=== PATIENT | female | born 1970 | race Caucasian/White ===

== ENCOUNTER → 2020-03-23 10:57 | Outpatient (BNVA) | payer OTHER, SELFPAY | PROVIDERS: PCP Nurse Practitioner Family; Referring Provider Nurse Practitioner Family; Visit Provider Surgery | DX: Z01.818 Encounter for other preprocedural examination (principal) | CPT/HCPCS: 99203; 99213 ==

== ENCOUNTER → 2020-04-06 07:50 | Outpatient (BNV) | payer OTHER, SELFPAY | PROVIDERS: PCP Nurse Practitioner Family; Referring Provider Surgery; Visit Provider Internal Medicine Medical Oncology | DX: C50.911 Malignant neoplasm of unspecified site of right female breast (principal); M85.80 Other specified disorders of bone density and structure, unspecified site | CPT/HCPCS: 99204; 99213; 99214 ==

== ENCOUNTER 2020-04-07 10:30 | Outpatient (REF) | payer OTHER, SELFPAY ==
--- NOTE | 2020-04-07 10:38 | MM_ITS ---
EXAMINATION: BONE DENSITOMETRY CLINICAL INDICATION: Other specified disorders bone density and structure, unspecified site. COMPARISON: None (current study represents initial baseline exam). TECHNIQUE: Using a [employer] DXA System (software version: 13.1) manufactured by [employer], dual-energy x-ray absorptiometry was performed of the lumbar spine and left hip. The images are of good technical quality. Summary results are attached. FINDINGS: AP SPINE L1-L4: BMD 0.986 g/cm2, Z-score -1.2, T-score -1.6, osteopenia. LEFT FEMUR, NECK: BMD 0.965 g/cm2, Z-score 0.3, T-score -0.5, normal. LEFT FEMUR, TOTAL: BMD 1.021 g/cm2, Z-score 0.6, T-score 0.1, normal. IDENTIFIED RISK FACTORS: Low calcium intake. HISTORY OF FRACTURE: None listed. MEDICATIONS: Calcium supplement and/or multivitamin. Vitamin D. IMPRESSION: 1. DIAGNOSIS: Osteopenia based on the lowest T-score value of -1.6 in the lumbar spine applying World Health Organization criteria. 2. 10-YEAR FRACTURE RISK PREDICTION, FRAX: Major osteoporotic fracture (clinical spine, forearm, hip or shoulder) 2.1%. Hip fracture 0.1%. 3. Treatment Recommendations: NOF guidelines recommend consideration for treatment in postmenopausal women and men age 50 and older presenting with the following: -A hip or vertebral (clinical or morphometric) fracture. -T-score less than or equal to -2.5 at the femoral neck or spine after appropriate evaluation to exclude secondary causes. -Low bone mass at the hip or spine and a 10-year fracture probability by FRAX of greater than or equal to 3% for hip fracture or greater than or equal to 20% for major osteoporotic fracture based on the [place] adapted WHO algorithm. 4. Other Recommendations: All treatment decisions require clinical judgment and consideration of individual patient factors, including patient preferences, comorbidities, previous drug use, risk factors not captured in the FRAX model (e.g. frailty, falls, vitamin D deficiency, increased bone turnover, interval significant decline in bone density) and possible under or overestimation of fracture risk by FRAX. Additional medical evaluation for secondary cause of low bone mineral density may be appropriate. FUTURE SCAN RECOMMENDATION: People with diagnosed cases of osteoporosis or at high risk for fracture should have regular bone mineral density tests. For patients eligible for Medicare, routine testing is allowed once every 2 years. The testing frequency can be increased to one year for patients who have rapidly progressing disease, those who are receiving or discontinuing medical therapy to restore bone mass, or have additional risk factors.
--- NOTE | 2020-04-13 11:31 | MHC.HEMONCSW ---
FAXED INFO. TO [facility]. THEY WILL CALL AND SCHEDULE PT.
== END 2020-04-07 10:31 | disposition home or self-care (01) ==
LOC: HO.MAMMO 10:30
PROVIDERS: Visit Provider Internal Medicine Medical Oncology
DX: Z13.820 Encounter for screening for osteoporosis (principal); M85.80 Other specified disorders of bone density and structure, unspecified site; Z79.899 Other long term (current) drug therapy
CPT/HCPCS: 77081

== ENCOUNTER → 2020-04-28 09:23 | Outpatient (BNVA) | payer OTHER, SELFPAY | PROVIDERS: PCP Nurse Practitioner Family; Visit Provider Surgery | DX: C50.911 Malignant neoplasm of unspecified site of right female breast (principal); Z79.810 Long term (current) use of selective estrogen receptor modulators (SERMs) | CPT/HCPCS: 99212 ==

== ENCOUNTER 2020-05-02 06:29 | Day surgery (SDC) | payer OTHER, SELFPAY ==
[2020-04-26 19:07] VITALS: BMI 25.0
--- NOTE | 2020-05-01 10:59 | HO.ANESPROP2 ---
Documented by User: Spring Riddle 05/01/20 11:01 HPI - Anesthesia Eval Consult details Narrative: 49yo F for Colonoscopy PMFSH Past Medical History Medical History Anxiety Back pain Chronic insomnia Depression Dyspepsia Elevated cholesterol GERD (gastroesophageal reflux disease) Hypertension Invasive lobular carcinoma of right breast, stage 1 Nephrolithiasis Scoliosis Family History Family History Mother History of diabetes mellitus History of fibromyalgia Father No problems noted. Paternal Grandmother History of cancer Surgical History Surgical History History of extraction of renal calculus History of lumpectomy of right breast (~03/16/20) Social History Social History Household Members: Family Alcohol intake: current Alcohol intake frequency: holidays/special occasions only Smoking Status: Former smoker Years Smoked: 15 Smoked in Last 30 Days: No Smoking Quit Date: 2016 Use of substances other than those prescribed or required for medical reasons: No Advance Directives: No Advance Directives Information Provided: No Advance Directives on File: No Recently lost weight without trying: No Meds Allergies Allergy/AdvReac Type Severity Reaction Status Date / Time ibuprofen [From MOTRIN] AdvReac Unknown BRUISING Verified 05/02/20 06:44 Vicks Vaporub Allergy Unknown rash Uncoded 05/02/20 06:44 Home Medications Medication Instructions Recorded Confirmed Type atorvastatin 20 mg tablet 20 mg PO DAILY 03/18/20 04/26/20 History losartan 50 mg tablet 50 mg PO DAILY 03/18/20 04/26/20 History ondansetron HCl 4 mg tablet 4 mg PO Q8H PRN 03/23/20 04/26/20 History fluoxetine 40 mg capsule 40 mg PO DAILY 04/28/20 History Exam Exam Date and Time: May 01, 2020 1059 Height,Weight and Vital Signs: Height 5 ft 2 in Weight 62.142 kg Pertinent Lab Results Pertinent Lab Results: Laboratory Tests 04/20/20 04/20/20 10:28 10:28 WBC 6.9 Hgb 12.2 Hct 37.4 Plt Count 191 Sodium 137 Potassium 4.2 Chloride 102 Carbon Dioxide 28 BUN 11 Creatinine 0.55 Assessment and Plan Assessment Anesthesia Assessment: Chart Reviewed Documented by User: Larissa Beckwith 05/02/20 07:08 [facility] Past Medical History Medical History Anxiety Back pain Chronic insomnia Depression Dyspepsia Elevated cholesterol GERD (gastroesophageal reflux disease) Hypertension Invasive lobular carcinoma of right breast, stage 1 Nephrolithiasis Scoliosis Family History Family History Mother History of diabetes mellitus History of fibromyalgia Father No problems noted. Paternal Grandmother History of cancer Surgical History Surgical History History of extraction of renal calculus History of lumpectomy of right breast (~03/16/20) Social History Social History Household Members: Family Alcohol intake: current Alcohol intake frequency: holidays/special occasions only Smoking Status: Former smoker Years Smoked: 15 Smoked in Last 30 Days: No Smoking Quit Date: 2016 Use of substances other than those prescribed or required for medical reasons: No Advance Directives: No Advance Directives Information Provided: No Advance Directives on File: No Recently lost weight without trying: No Meds Allergies Allergy/AdvReac Type Severity Reaction Status Date / Time ibuprofen [From MOTRIN] AdvReac Unknown BRUISING Verified 05/02/20 06:44 Vicks Vaporub Allergy Unknown rash Uncoded 05/02/20 06:44 Home Medications Medication Instructions Recorded Confirmed Type atorvastatin 20 mg tablet 20 mg PO DAILY 03/18/20 04/26/20 History losartan 50 mg tablet 50 mg PO DAILY 03/18/20 04/26/20 History ondansetron HCl 4 mg tablet 4 mg PO Q8H PRN 03/23/20 04/26/20 History fluoxetine 40 mg capsule 40 mg PO DAILY 04/28/20 History Exam Airway Mallampati Class: II TM Dist: >3cm Neck ROM: Full Assessment and Plan Assessment Anesthesia Assessment: Anesthesia Plan Discussed and Chart Reviewed Final Anesthetic Review NPO: Yes ASA Class: II Final Preanesthetic Review: No Changes in Pt Med Stat, Meds/Allgs Chart Reviewed, Consent Obtained/Reviewed and Anes Risks/Benef Reviewed Patient Risk: Intermediate Procedure Risk: Low Assessment/Block/Sedation in SS: Assess/Block/Sedation-SS Anesthetic Plan Anesthetic Plan: MAC: Disposition: Standard PACU
[2020-05-02 06:46] VITALS: BP 139/76; PULSE 83; RESP 16; TEMP 36.7; O2SAT 98
[2020-05-02] MEDS: Lactated Ringers 1,000 ML 100 ML IVCONT (06:59)
--- NOTE | 2020-05-02 07:20 | P.HPSUR_ITS ---
Pre-Procedural Eval Section A The patient is an INPATIENT: No Section B Chief Complaint: Colon Cancer Screening Details of Present Illness: for screening colonoscopy, no GI complaints Relevant Family History (Specify if Yes): No Relevant Social History: None Present Medications: see Short Stay Collaborative assessment Medical History: No relevant PMH Allergies: Allergies Allergy/AdvReac Type Severity Reaction Status Date / Time ibuprofen [From MOTRIN] AdvReac Unknown BRUISING Verified 05/02/20 06:44 Vicks Vaporub Allergy Unknown rash Uncoded 05/02/20 06:44 Review of Systems Sugical H&P ROS: Negative: Constitution, Cardiovascular, Respiratory, Neurological, Psychiatric, Hem-Onc, Allergic/Immunologic, Gastrointestinal, Genitourinary, Musculoskeletal, Integumentary, Endocrine and Eyes/Ears/Nose/Throat Exam Surgical H&P Exam: Normal: HEENT, Normal: Heart, Normal: Lungs, Normal: Ex tremities, Normal: Abdomen, Normal: Skin and Normal: Neurological Plan Diagnosis/Plan: Unchanged Patient has been examined and remains a candidate for the planned procedure
--- NOTE | 2020-05-02 08:14 | PM.OP ---
Brief Operative Note Date of procedure: 05/02/20 Pre-op diagnosis: colon ca screen Post-op diagnosis: other (colonoscopy to the right colon only - unable to advance due to looping) Procedure: colonoscopy to right colon Surgeon: Clarence Harris MD Anesthesia: MAC Estimated blood loss (mL): 0 Pathology: none sent Condition: stable Disposition: PACU
[2020-05-02 08:15] VITALS: BP 102/59; PULSE 77; RESP 16; TEMP 36.4; O2SAT 97
[2020-05-02 08:25] VITALS: BP 121/73; PULSE 73; RESP 18; TEMP 36.3; O2SAT 98
--- NOTE | 2020-05-02 08:41 | HO.POSTANES ---
Post Anesthesia Evaluation Post Anesthesia Evaluation Vital Signs: Vital Signs Temp Pulse Resp BP Pulse Ox 05/02/20 08:25 97.4 F 73 18 121/73 98 05/02/20 08:15 97.6 F 77 16 102/59 L 97 05/02/20 06:46 98.1 F 83 16 139/76 98 Anesthesia: Monitored (tiva) Mental Status: Awake Pain Control: Satisfactory Nausea/Vomiting: None Hydration: Adequate Anesthesia-Related Issues: No Anes. Related Issues
--- NOTE | 2020-05-02 09:18 | OP_ITS ---
SURGEON: Clarence Harris MD INDICATIONS: The patient is a 49-year-old female referred for screening colonoscopy. She understood the technique of procedure. She was aware of the risks, benefits, and alternatives. PREOPERATIVE DIAGNOSIS: Colon cancer screening. POSTOPERATIVE DIAGNOSIS: Colonoscopy of the right colon, otherwise no lesions, otherwise normal. PROCEDURE PERFORMED: Colonoscopy to the right colon, unable to advance to the distal right colon and cecum. ESTIMATED BLOOD LOSS: COMPLICATIONS: ANESTHESIA: ASSISTANTS: SPECIMENS: DESCRIPTION OF PROCEDURE: She was brought to the operating room, placed in left lateral decubitus position under monitored anesthesia care. A full digital rectal exam was done. There were no palpable anal canal lesions. The tip of the Olympus colonoscope was introduced gently through the anal orifice and advanced with insufflation all the way past the hepatic flexure on the right side. The patient had significant looping however during the entire procedure. After we had gotten past the hepatic flexure, I was unable to advance the scope further despite multiple maneuvers including turning the patient supine. We had applied splinting on the abdomen in different quadrants but we were unsuccessful and unable to advance the scope further than the distal right colon. After multiple attempts, we decided to continue to keep withdrawing the scope. We examined rest of the colonic mucosa from the distal right colon, transverse colon, left colon all the way to the rectum. The patient had good bowel prep, so it was unlikely that any lesion may have been missed. The rectum was reached and there were no lesions seen. The anal canal was unremarkable. The scope was gently withdrawn completely with de-sufflation. The patient tolerated the procedure well. There were no complications noted. In view of this, as we were unable to see the proximal right colon and cecum, I would recommend another colonoscopy within the next 5 years. Furthermore, I would recommend doing stool testing every year as part of her screening. MD SHA Welch/[employer] / [id number]
== END 2020-05-02 08:43 | disposition home or self-care (01) ==
PROVIDERS: PCP Nurse Practitioner Family; Visit Provider Surgery
PROC: 0DJD8ZZ Inspection of Lower Intestinal Tract, Via Natural or Artificial Opening Endoscopic (ICD-10-PCS; CPT 45378; principal; 2020-05-02 07:30)
DX: Z12.11 Encounter for screening for malignant neoplasm of colon (principal); K56.2 Volvulus; K21.9 Gastro-esophageal reflux disease without esophagitis; F32.9 Major depressive disorder, single episode, unspecified; I10 Essential (primary) hypertension; C50.911 Malignant neoplasm of unspecified site of right female breast; Z79.810 Long term (current) use of selective estrogen receptor modulators (SERMs); Z79.899 Other long term (current) drug therapy; Z88.8 Allergy status to other drugs, medicaments and biological substances; Z87.891 Personal history of nicotine dependence
CPT/HCPCS: 45378; J2405; J3010

== ENCOUNTER → 2020-05-15 09:42 | Outpatient (BNVA) | payer OTHER, SELFPAY | PROVIDERS: PCP Nurse Practitioner Family; Visit Provider Surgery | DX: Z01.818 Encounter for other preprocedural examination (principal) | CPT/HCPCS: 99212 ==

== ENCOUNTER → 2020-07-28 09:01 | Outpatient (BNVA) | payer OTHER, SELFPAY | PROVIDERS: PCP Nurse Practitioner Family; Visit Provider Surgery | DX: C50.911 Malignant neoplasm of unspecified site of right female breast (principal); Z79.810 Long term (current) use of selective estrogen receptor modulators (SERMs); Z17.0 Estrogen receptor positive status [ER+]; Z92.3 Personal history of irradiation | CPT/HCPCS: 99212 ==

== ENCOUNTER → 2020-10-24 09:30 | Outpatient (BNVA) | payer OTHER, SELFPAY | PROVIDERS: PCP Nurse Practitioner Family; Referring Provider Nurse Practitioner Family; Visit Provider Surgery | DX: Z85.3 Personal history of malignant neoplasm of breast (principal) | CPT/HCPCS: 99212 ==

== ENCOUNTER 2020-11-16 | Outpatient (REF) | payer OTHER, SELFPAY | END 2020-11-16 00:01 | disposition home or self-care (01) | LOC: HO.LNP | PROVIDERS: Visit Provider Hospitalist | DX: R10.9 Unspecified abdominal pain (principal) | CPT/HCPCS: 87086 ==

== ENCOUNTER 2020-11-17 11:39 | Outpatient (REF) | payer OTHER, SELFPAY | END 2020-11-17 11:40 | disposition home or self-care (01) | LOC: HO.LNP 11:39 | PROVIDERS: Visit Provider Hospitalist | DX: Z13.89 Encounter for screening for other disorder (principal) ==

== ENCOUNTER 2020-11-22 12:51 | Outpatient (REF) | payer OTHER, SELFPAY ==
--- NOTE | ~2020-11-22 | US_ITS ---
EXAMINATION: US RETROPERITONEAL LIMITED (RENAL ONLY) CLINICAL INFORMATION: Abdominal pain. History of kidney stones.. COMPARISON: None TECHNIQUE: Routine grayscale imaging of both kidneys is performed. FINDINGS: RIGHT KIDNEY: 10.8 x 5.9 x 5.7 cm (SAG x AP x TRV). The kidney is normal in size, contour, and echogenicity. Renal cortical thickness is normal. There is an echogenic stone upper pole measuring 0.42 x 0.45 x 0.47 cm. No additional echogenic stone seen. There is no caliectasis or hydronephrosis. LEFT KIDNEY: 11.9 x 6.1 x 5.0 cm (SAG x AP x TRV). The kidney is normal in size, contour, and echogenicity. Renal cortical thickness is normal. There is a lower pole echogenic stone measuring 0.29 x 0.28 x 0.0 cm and a midpole echogenic stone measuring 0.21 x 0.16 x 0.24 cm. There are several echogenic foci non shadowing and non twinkle seen US/US renal BI IMPRESSION: Multiple echogenic nonobstructive stones in both kidneys. There are multiple non shadowing and non twinkle echogenic foci.
== END 2020-11-22 12:52 | disposition home or self-care (01) ==
LOC: HO.HMGCX 12:51
PROVIDERS: PCP Nurse Practitioner Family; Visit Provider Nurse Practitioner Family
DX: R10.9 Unspecified abdominal pain (principal); Z87.442 Personal history of urinary calculi
CPT/HCPCS: 76775

== ENCOUNTER 2020-11-23 09:26 | Outpatient (REF) | payer OTHER, SELFPAY ==
--- NOTE | ~2020-11-23 | US_ITS ---
EXAMINATION: US PELVIS LIMITED (BLADDER) CLINICAL INFORMATION: Left flank pain. COMPARISON: Renal ultrasound performed on 11/22/2020, CT scan of the abdomen and pelvis performed on 02/27/2020. TECHNIQUE: Real-time imaging of the bladder. FINDINGS: BLADDER: Well distended and normal. Bilateral ureteral jets are demonstrated. Prevoid bladder volume is 473 mL. Postvoid bladder volume is 81 mL. US/US bladder IMPRESSION: Mild post void residual volume in the urinary bladder without focal abnormality.
== END 2020-11-23 09:27 | disposition home or self-care (01) ==
LOC: HO.HMGCX 09:26
PROVIDERS: PCP Nurse Practitioner Family; Visit Provider Nurse Practitioner Family
DX: R10.9 Unspecified abdominal pain (principal)
CPT/HCPCS: 76857

== ENCOUNTER 2020-11-27 07:55 | Outpatient (REF) | payer OTHER, SELFPAY ==
--- NOTE | ~2020-11-27 | CT_ITS ---
EXAMINATION: CT ABDOMEN AND PELVIS WITHOUT CONTRAST CLINICAL INFORMATION: Abdominal pain. COMPARISON: CT abdomen and pelvis without contrast 02/27/2020 TECHNIQUE: Multidetector volumetric imaging was performed from the superior aspect of the liver through the pubic symphysis. Sagittal and coronal reformatted images were obtained on the technologist's workstation. This CT examination was performed using dose optimization techniques as appropriate, variously including the following: *Automated exposure control *Adjustment of mA and/or kV according to patient size (this includes techniques or standardized protocols for targeted exams where dose is matched to indication/reason for exam; i.e. extremities or head) *Use of iterative reconstruction technique DLP: 398 mGy-cm FINDINGS: LUNG BASES: There is plate-like atelectasis right middle lobe. Heart size is normal. LIVER, GALLBLADDER, AND BILIARY TREE: The liver is normal in size, shape, and diffusely attenuated. No focal hepatic lesion or biliary ductal dilatation is present. The gallbladder is unremarkable with no evidence of radiopaque gallstones, gallbladder wall thickening, or obvious pericholecystic inflammatory changes. PANCREAS: Unremarkable. SPLEEN: Unremarkable. ADRENAL GLANDS: Unremarkable. KIDNEYS AND URETERS: The kidneys are normal in size, shape, and attenuation. There is a 4 mm radiopaque nodular calculus in upper pole. In addition, there are two 2 mm radiopaque calculi in upper and midpole right kidney without caliectasis or hydronephrosis. There is a 3 mm calculus in the midpole left kidney without caliectasis. There is no hydronephrosis seen. BLADDER: Unremarkable. GASTROINTESTINAL TRACT: There is a large amount of stool in the right colon and scattered stool and gas in the rest of the colon without distention. The stomach is nondistended without hiatal hernia. The small bowel loops are normal caliber. Appendix is not visualized with certainty. ABDOMINAL WALL: No significant hernia is appreciated. LYMPH NODES: Normal. VASCULAR: Unremarkable. PELVIC VISCERA: The uterus is anteverted and appears unremarkable. OSSEOUS STRUCTURES: Unremarkable. CT/CT abdomen pelvis wo con IMPRESSION: Moderate constipation. Bilateral nephrolithiasis without caliectasis or hydronephrosis. Diffuse hepatic steatosis.
== END 2020-11-27 07:56 | disposition home or self-care (01) ==
LOC: HO.CT 07:55
PROVIDERS: PCP Nurse Practitioner Family; Visit Provider Nurse Practitioner Family
DX: R10.9 Unspecified abdominal pain (principal); N20.0 Calculus of kidney
CPT/HCPCS: 74176

== ENCOUNTER 2020-11-29 16:48 | Outpatient (REF) | payer OTHER, SELFPAY ==
[2020-11-29 16:52] LABS: Urine Cytology See Pathology rpt
== END 2020-11-29 16:49 | disposition home or self-care (01) ==
LOC: HO.LNP 16:48
PROVIDERS: Visit Provider Nurse Practitioner Family
DX: R10.9 Unspecified abdominal pain (principal); R31.9 Hematuria, unspecified
CPT/HCPCS: 87086; 88112

== ENCOUNTER → 2021-02-09 08:43 | Outpatient (BNVA) | payer OTHER, SELFPAY | PROVIDERS: Visit Provider Urology | DX: N20.0 Calculus of kidney (principal) | CPT/HCPCS: 99202 ==

== ENCOUNTER → 2021-02-22 08:56 | Outpatient (BNVA) | payer OTHER, SELFPAY | PROVIDERS: PCP Nurse Practitioner Family; Referring Provider Nurse Practitioner Family; Visit Provider Surgery | DX: C50.911 Malignant neoplasm of unspecified site of right female breast (principal); Z79.810 Long term (current) use of selective estrogen receptor modulators (SERMs) | CPT/HCPCS: 99212 ==

== ENCOUNTER 2021-02-23 13:22 | Outpatient (REF) | payer OTHER, SELFPAY ==
--- NOTE | ~2021-02-23 | MM_ITS ---
EXAMINATION: MM DIAGNOSTIC DIGITAL BREAST TOMOSYNTHESIS, BILATERAL CLINICAL INFORMATION: Right lumpectomy 03/16/2024 invasive lobular cancer upper outer right breast. Due for yearly. COMPARISON: Mammography: 03/16/2020, 03/01/2020, 02/25/2020, 08/27/2014 TECHNIQUE: Digital breast tomosynthesis is performed in both the craniocaudal and mediolateral oblique views along with computer-aided detection (CAD). Synthesized 2D images are generated from the tomosynthesis. Additional magnification right CC and magnification right ML views are obtained. FINDINGS: The breasts are heterogeneously dense, which may obscure small masses (ACR BI-RADS breast composition Category c). There are post therapy changes on the right with mild reduced breast size and minor scarring upper outer quadrant. There are scattered new calcifications in the lumpectomy bed, relatively coarse and likely dystrophic. Primary lesion had no calcifications. Right breast will be reassessed again in 6 months. The remainder the breasts show no significant changes. There is no interval mass or developing density. No abnormal calcifications on left. Skin contours are smooth. Results are discussed with the patient at time of visit. MM/MM tomosynthesis diagnostic BI IMPRESSION: 1. Right: Post therapy changes. Probable benign dystrophic calcifications at lumpectomy site. 2. Left: No mammographic evidence of malignancy. ASSESSMENT: BI-RADS 3: Probably Benign RECOMMENDATION: Diagnostic right mammography in 6 months. This patient's information was entered into a reminder system with a target due date for their next mammogram.
== END 2021-02-23 13:23 | disposition home or self-care (01) ==
LOC: HO.MAMMO 13:22
PROVIDERS: Visit Provider Surgery
DX: C50.911 Malignant neoplasm of unspecified site of right female breast (principal)
CPT/HCPCS: 77062; 77066

== ENCOUNTER 2021-08-21 12:47 | Outpatient (REF) | payer OTHER, SELFPAY ==
--- NOTE | ~2021-08-21 | MM_ITS ---
EXAMINATION: MM DIAGNOSTIC DIGITAL MAMMOGRAPHY, RIGHT CLINICAL INFORMATION: Short interval six-month follow-up probable benign dystrophic calcifications at lumpectomy bed. History right lumpectomy 03/16/2020 invasive lobular cancer upper outer quadrant. Primary lesion was architectural distortion. COMPARISON: Mammography: 02/23/2021, 03/16/2020, 03/01/2020, 02/25/2020, 08/27/2014 TECHNIQUE: Digital mammography is performed in craniocaudal and mediolateral oblique views along with computer-aided detection (CAD). Additional magnification views are obtained in the CC x2 and ML projections. FINDINGS: The breasts are heterogeneously dense, which may obscure small masses (ACR BI-RADS breast composition Category c). The lumpectomy site is similar to prior postoperative exam. There is minor scarring as before. Some dystrophic calcifications are again seen in the lumpectomy scar is similar to prior study. There are likely some fine vascular calcifications more peripherally as well. Right breast will be reassessed again at time of annual bilateral exam, due in 6 months. Results are provided to the patient at time of visit by the technologist. MM/MM diagnostic mammo unilat RT IMPRESSION: No significant changes from prior initial new baseline postoperative exam. ASSESSMENT: BI-RADS 3: Probably Benign RECOMMENDATION: Diagnostic mammography at time of annual bilateral mammography, due in 6 months. This patient's information was entered into a reminder system with a target due date for their next mammogram.
== END 2021-08-21 12:48 | disposition home or self-care (01) ==
LOC: HO.MAMMO 12:47
PROVIDERS: Visit Provider Surgery
DX: C50.911 Malignant neoplasm of unspecified site of right female breast (principal)
CPT/HCPCS: 77065

== ENCOUNTER 2022-03-22 12:48 | Outpatient (REF) | payer OTHER, SELFPAY ==
--- NOTE | ~2022-03-22 | MM_ITS ---
EXAMINATION: MM DIAGNOSTIC DIGITAL BREAST TOMOSYNTHESIS, BILATERAL CLINICAL INFORMATION: Due for yearly. Right lumpectomy 03/16/2024 invasive lobular cancer, primary lesion architectural distortion. Follow-up probable benign dystrophic calcifications at the lumpectomy site. COMPARISON: Mammography: 08/21/2021, 02/23/2021, 03/16/2020, 03/01/2020, 02/25/2020, 08/27/2014 TECHNIQUE: Digital breast tomosynthesis is performed in both the craniocaudal and mediolateral oblique views along with computer-aided detection (CAD). Synthesized 2D images are generated from the tomosynthesis. FINDINGS: The breasts are heterogeneously dense, which may obscure small masses (ACR BI-RADS breast composition Category c). Parenchymal pattern is similar to prior studies. Minor post therapy changes on the right are stable. The probable dystrophic calcifications at the lumpectomy site are stable. They will be reassessed again at next bilateral annual mammography to include magnification views. There is no interval mass or architectural abnormality or developing density in either breast. The axilla are unremarkable. Results are provided to the patient at time of visit by the technologist. MM/MM tomosynthesis diagnostic BI IMPRESSION: Right: -Post therapy changes. -Benign-appearing dystrophic calcifications at lumpectomy site, stable. Left: -No mammographic evidence of malignancy. ASSESSMENT: BI-RADS 3: Probably Benign RECOMMENDATION: Diagnostic mammography at time of next annual exam, due in 12 months. This patient's information was entered into a reminder system with a target due date for their next mammogram.
== END 2022-03-22 12:49 | disposition home or self-care (01) ==
LOC: HO.MAMMO 12:48
PROVIDERS: PCP Nurse Practitioner Family; Visit Provider Surgery
DX: C50.911 Malignant neoplasm of unspecified site of right female breast (principal)
CPT/HCPCS: 77062; 77066

== ENCOUNTER 2022-11-04 11:15 | Outpatient (REF) | payer OTHER, SELFPAY ==
[2022-11-04 13:52] LABS: MANUAL DIFF FLAG NO
[2022-11-04 13:55] LABS: Appearance Urine Clear; Color Urine Yellow; Glucose Urine UA Negative (Negative); Leukocyte Esterase Urine Negative (Negative); Nitrite Urine Negative (Negative); PH 5.5 (5.0-9.0); Specific Gravity - Urine 1.015 (1.005-1.025); UMIC TRIGGER UACC YES; Urine Blood Moderate (2+) (Negative); Urine Ketones Negative (Negative); Urine Protein Negative (Neg-Trace)
[2022-11-04 13:58] LABS: Basophils Percent Auto 0.7 % (0-2); Eosinophils Absolute Auto 0.2 X10*3/uL (0.0-0.4); Eosinophils Percent Auto 4.1 % (0-4); Hematocrit 33.6 % (37.0-47.0); Hemoglobin 11.1 g/dl (12.0-16.0); Imm Gran Abs Auto 0.01 X10*3/uL (0.00-0.03); Imm Gran Pct Auto 0.2 % (0.0-0.4); Lymphocytes Absolute Auto 1.9 X10*3/uL (1.2-4.9); Lymphocytes Percent Auto 34.2 % (20-40); Mean Corpuscular Hemoglobin 29.4 pg (27.0-33.0); Mean Corpuscular Volume 88.9 fL (80.0-98.0); Mean Platelet Volume 10.5 fL (9.4-12.3); Monocytes Absolute Auto 0.5 X10*3/uL (0.1-1.2); Monocytes Percent Auto 8.1 % (2-11); Neutrophils Percent Auto 52.7 % (45-73); Platelet Count 187 X10*3/uL (160-400); Red Blood Count 3.78 X10*6/uL (4.20-5.50); Red Cell Distribution Width 13.9 % (11.0-16.0); White Blood Count 5.7 X10*3/uL (4.8-10.8)
[2022-11-04 14:14] LABS: Alanine Aminotransferase 14 U/L (0-31); Albumin Level 3.6 g/dL (3.5-5.0); Alkaline Phosphatase 41 U/L (39-117); Anion Gap 8 (12-20); Aspartate Amino Transferase 18 U/L (5-31); Bilirubin Total 0.4 mg/dL (0.0-1.0); Blood Urea Nitrogen 11 mg/dL (9-16); Calcium 8.6 mg/dL (8.4-10.2); Carbon Dioxide 31 mmol/L (22-29); Chloride 104 mmol/L (96-108); Cholesterol 187 mg/dL; Estimated Glomerular Filt Rate > 60; Glucose Fasting 84 mg/dL (60-99); HDL Cholesterol 65 mg/dL; LDL Cholesterol Calculated 112 mg/dl; Potassium 4.3 mmol/L (3.3-5.1); Sodium 139 mmol/L (135-145); Total Protein 6.1 g/dL (6.5-8.0); Triglycerides 54 mg/dL
[2022-11-04 14:16] LABS: Bacteria Urine None Seen (None Seen); Hyaline Casts Urine 0-2 /LPF (0-2); WBC Urine 0-5 /HPF (0-5)
== END 2022-11-04 11:16 | disposition home or self-care (01) ==
LOC: HO.HMGCLDS 11:15
PROVIDERS: PCP Nurse Practitioner Family; Visit Provider Nurse Practitioner Family
DX: I10 Essential (primary) hypertension (principal)
CPT/HCPCS: 36415; 80053; 80061; 81001; 84443; 85025

== ENCOUNTER 2023-01-13 10:43 | Outpatient (REF) | payer OTHER, SELFPAY ==
--- NOTE | ~2023-01-13 | XR_ITS ---
EXAMINATION: XR WRIST, RIGHT CLINICAL INFORMATION: Pain in right wrist COMPARISON: 01/21/2020 TECHNIQUE: PA, lateral, and oblique views of the right wrist. FINDINGS: Moderate degenerative changes first carpometacarpal joint with joint space narrowing and hypertrophic change. Radiopaque marker placed by the technologist to indicate the area of concern as indicated by the patient at the volar aspect of the wrist. Alignment maintained. No displaced fracture of the wrist appreciated. XR/XR wrist RT min 3V IMPRESSION: Moderate degenerative changes first carpometacarpal joint. No displaced fracture. Recommend follow-up imaging in 10-14 days if fracture is suspected.
== END 2023-01-13 10:44 | disposition home or self-care (01) ==
LOC: HO.HOSX 10:43
PROVIDERS: Visit Provider Physician Assistant
DX: M67.431 Ganglion, right wrist (principal)
CPT/HCPCS: 73110; 99202

== ENCOUNTER 2023-01-13 12:22 | Outpatient (AMB) | payer OTHER, SELFPAY ==
[2023-01-13 12:36] VITALS: BMI 26.5
--- NOTE | 2023-01-13 12:36 | A.OFFVIS_ITS ---
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 Patient reports lump that comes and goes for the past 2.5 years. Lump returned about 8 months ago and has been growing in size. Numbness and tingling in hand/fingers. Her pain radiates up her arm and down to her fingers. 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 She states she has lump which comes and goes but has returned for about 8 months and is growing in size. She currently reports she has pain in her wrist which radiates from her arm down to her fingers. She also c/o numbness and tingling in her hand and finger. 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 [facility] Medical History Anxiety Back pain Chronic insomnia Colon cancer screening Depression Dyspepsia Elevated cholesterol GERD (gastroesophageal reflux disease) Hypertension Invasive lobular carcinoma of right breast, stage 1 Nephrolithiasis Scoliosis Surgical History History of extraction of renal calculus History of lumpectomy of right breast (~03/16/20) Family History Mother History of diabetes mellitus History of fibromyalgia Father No problems noted. Paternal Grandmother History of cancer Social History Household Members: Family Housing: House Alcohol intake: current Alcohol intake frequency: holidays/special occasions only Patient Tobacco Use Status: Former Tobacco user Quit Date: 2016 Years Smoked: 15 e-Cigarette/Vaping Use: Never Used Second Hand Smoke Exposure: No Current occupational status: employed Current occupation: [employer], [place]- [employer], 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 Current occupational exposures/hazards: Yes Cognitive needs: No Hearing needs: No Vision needs: No Review of Systems Const All systems reviewed & are unremarkable except as noted in HPI and below Physical Exam Vital Signs: BMI result Body Mass Index 26.5 Const General: cooperative, healthy appearing, comfortable, no acute distress, well developed and alert Orientation/consciousness: patient oriented x3 HEENT Head: Yes normal to inspection, Yes normocephalic and Yes atraumatic Eyes General: appearance normal, both eyes and all related structures Resp Effort & Inspection: normal respiratory effort and able to speak in complete sentences Cardio Rate: regular rate Peripheral pulses: Peripheral pulses 2+ throughout GI Palpation (GI): Soft to palpation Skin Lesions: no lesions Rashes: no rashes Neuro General: patient oriented x3 Extrem Other: Right wrist skin intact. There is a marble sized mass along the volar aspect of the wrist inline with the base of the thumb along the radial aspect of the w rist. The mass is firm and mobile. No tenderness to palpation. NVI. Results Reviewed Results Reviewed: Xrays were obtained in the office today and personally reviewed by me of the right wrist negative for acute fracture or discloation Assessment & Plan Assessment & Plan (1) Ganglion cyst of wrist: Code(s): M67.439 - Ganglion, unspecified wrist Plan We discussed options which include conservative vs operative treatment. Since this has been present for several months and it is causing discomfort the decision was made to undergo surgical intervention. We discussed risk, benefits and alternatives. Risk including but not limited to infection, stiffness, recurrence of mass and pain. She does understand all this and would like to proceed with excision biopsy of right wrist ganglion cyst with Dr. Izaguirre. She will return to meet with Dr izaguirre . Orders: Orders XR wrist RT min 3V Today M25.531 - Pain in right wrist Patient Instructions: Scribed for Art Link PA-C, by Bernard Silverman director of medical review, on 01/13/2023 at 12:30 PM JONATHAN. Atr Figueroa PA-C, have personally reviewed and agree with the information entered by the scribe. Coding Level of Care Code New Pt Level 4 (41981) Diagnoses Ganglion cyst of wrist M67.439
== END 2023-01-13 13:03 | disposition home or self-care (01) ==
PROVIDERS: PCP Nurse Practitioner Family; Visit Provider Physician Assistant
DX: M67.431 Ganglion, right wrist (principal)
CPT/HCPCS: 99204

== ENCOUNTER 2023-01-31 09:33 | Outpatient (AMB) | payer OTHER, SELFPAY ==
--- NOTE | 2023-01-31 09:35 | A.OFFVIS_ITS ---
Intake Vital Signs 01/31/23 09:42 Height 5 ft 2 in Weight 147 lb BMI 26.9 BP 143/73 H Blood Pressure Location Lt brachial Position Sitting Pulse 94 Intake Visit Reasons: breast exam Intake Note: Patient is seen in office for follow up visit, breast exam. Pt c/o: denies any concerns or changes since last visit Market Research Assistant Required: No Accompanied by: Self / Same As Patient Allergies ibuprofen [From MOTRIN] Adverse Reaction (Unknown, Verified 01/31/23 09:42) BRUISING Vicks Vaporub Allergy (Unknown, Uncoded 01/31/23 09:42) rash Medication List - Last Reconciled 01/31/23 by Enzo Zepeda MD atorvastatin 20 mg PO DAILY cholecalciferol (vitamin D3) (Vitamin D3) 50 mcg PO DAILY citalopram (Celexa) 20 mg PO DAILY 4 days losartan 50 mg PO DAILY omeprazole 40 mg PO DAILY PRN pramoxine 1% (Proctofoam) 1 appl MT QID PRN tamoxifen 20 mg PO DAILY HPI HPI Comments History of Present Illness Details Dov Zamora is a 52 year old female patient of Enzo Blake and Dr. Gonzalez presenting on 02/29/2020 with complaints of pain in the left breast in the upper outer quadrant adjacent to the nipple-areolar complex for approximately 2 months. Workup with mammogram and ultrasound revealed no suspicious changes in the left breast however an area of architectural distortion was identified in the right breast. This was regarded as suspicious for malignancy and stereotactic sampling recommended.? Her family history is negative for breast cancer a significant for grandmother with leukemia. She is 5 para 5 although 1 child . She reports breast-feeding her children for short time. She underwent at stereotactic guided biopsy which revealed on 03/01/2020 which revealed an invasive lobular carcinoma grade 1 ER positive MT positive. 03/16/2020 Right breast lumpectomy with needle localization; sentinel node biopsy, right axilla. Pathology: No residual carcinoma, 0/5 nodes with metastatic disease. 04/06/[address] Aldana, recommended adjuvant radiation therapy, Tamoxifen. 06/11/2020 Completed radiation therapy at [facility] Her most recent mammogram on 03/22/2022 revealed post treatment changes in the right breast but no mammographic evidence of malignancy (BI-RADS 3). A diagnostic mammogram was recommended in 12 months and is scheduled [facility]. She feels well with no new complaints. She does have occasional soreness in the right breast when using her arm. [facility] Medical History Anxiety Back pain Chronic insomnia Colon cancer screening Depression Dyspepsia Elevated cholesterol GERD (gastroesophageal reflux disease) Hypertension Invasive lobular carcinoma of right breast, stage 1 Nephrolithiasis Scoliosis Surgical History History of extraction of renal calculus History of lumpectomy of right breast (~03/16/20) Family History Mother History of diabetes mellitus History of fibromyalgia Father No problems noted. Paternal Grandmother History of cancer Social History Household Members: Family Housing: House Alcohol intake: current Alcohol intake frequency: holidays/special occasions only Patient Tobacco Use Status: Former Tobacco user Quit Date: 2016 Smoked: 15 e-Cigarette/Vaping Use: Never Used Second Hand Smoke Exposure: No Current occupational status: employed Current occupation: [employer]- [employer], 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 Current occupational exposures/hazards: Yes Cognitive needs: No Hearing needs: No Vision needs: No Review of Systems Const All systems reviewed & are unremarkable except as noted in HPI and below Denies nipple discharge Skin/Breast Reports breast pain, Denies breast mass, Denies change in breast shape, Denies change in pigmentation and Denies nipple discharge Physical Exam Const General: cooperative, healthy appearing, comfortable and no acute distress Chest Other: Right breast with a well-healed incision in the upper outer quadrant. No skin change, nipple discharge, nipple inversion, palpable mass, or enlarged lymph nodes. Left breast: No skin change, nipple discharge, nipple retraction, palpable mass, or enlarged lymph nodes. Resp Effort & Inspection: normal respiratory effort, no audible wheezes, no cough and no respiratory distress GI Inspection: Yes normal to inspection Skin Other: Warm and dry, no rash Extrem Other: No lymphedema right arm Assessment & Plan Assessment & Plan (1) Invasive lobular carcinoma of right breast, stage 1: Code(s): C50.911 - Malignant neoplasm of unspecified site of right female breast Plan: 52-year-old female patient with history of right breast lobular carcinoma invasive status post lumpectomy and axillary node sentinel biopsy on 03/16/2020. Patient completed radiation therapy to the right breast in May 2020. She is currently on tamoxifen which she is tolerating well. Examination today reveals no evidence of recurrence disease in either breast. She is due for an annual mammogram on 03/25/2023. I have asked her to return for follow-up examination in approximately 6 months. She is welcome to call sooner for any new concerns. Coding Level of Care Code Est Pt Level 3 (19501) Diagnoses Invasive lobular carcinoma of right breast, stage 1 C50.911
[2023-01-31 09:42] VITALS: BP 143/73; PULSE 94; BMI 26.9
== END 2023-01-31 09:54 | disposition home or self-care (01) ==
PROVIDERS: PCP Nurse Practitioner Family; Visit Provider Surgery
DX: C50.911 Malignant neoplasm of unspecified site of right female breast (principal)
CPT/HCPCS: 99213

== ENCOUNTER → 2023-01-31 09:33 | Outpatient (BNVA) | payer OTHER, SELFPAY | PROVIDERS: PCP Nurse Practitioner Family; Visit Provider Surgery | DX: N64.4 Mastodynia (principal); N64.89 Other specified disorders of breast; C50.411 Malignant neoplasm of upper-outer quadrant of right female breast; Z17.0 Estrogen receptor positive status [ER+]; Z92.3 Personal history of irradiation | CPT/HCPCS: 99212 ==

== ENCOUNTER 2023-02-06 07:52 | Outpatient (AMB) | payer OTHER, SELFPAY ==
[2023-02-06 07:56] VITALS: BP 126/74; BMI 26.6
--- NOTE | 2023-02-06 07:56 | MHC.OFFVIS ---
Intake Vital Signs 02/06/23 07:56 Height 5 ft 2 in Weight 145 lb 8.081 oz BMI 26.6 BP 126/74 Intake Visit Reasons: New patient Annual Intake Note: no concerns Printed Forms Proofreader Required: No Information Interpreted: non-clinical & clinical Relay Dispatcher: Relay Dispatcher Present (Lenora MAURICE) Accompanied by: Self / Same As Patient Allergies ibuprofen [From MOTRIN] Adverse Reaction (Unknown, Verified 02/06/23 08:00) BRUISING Vicks Vaporub Allergy (Unknown, Uncoded 02/06/23 08:00) rash Post menopausal: Yes HPI HPI Comments History of Present Illness Details Presenting for annual exam. No complaints. Last Pap/HPV was in 2019 negative Last Mammogram was BI-RADS 3 in 03/14, the recommendation was to repeat in 12 months, the patient is scheduled for next screening mammogram in few weeks Last Colonoscopy was in 05/12, the recommendation was to repeat in 5 years PFS Medical History Anxiety Back pain Chronic insomnia Colon cancer screening Depression Dyspepsia Elevated cholesterol GERD (gastroesophageal reflux disease) Hypertension Invasive lobular carcinoma of right breast, stage 1 Nephrolithiasis Scoliosis Surgical History H/O oral surgery History of extraction of renal calculus History of lumpectomy of right breast (~03/16/20) Family History Mother History of diabetes mellitus History of fibromyalgia HTN (hypertension) Father Alzheimer disease Paternal Grandmother History of cancer Social History Household Members: Spouse and Children Housing: House Alcohol intake: current Alcohol intake frequency: holidays/special occasions only Patient Tobacco Use Status: Former Tobacco user Quit Date: 2017 Years Smoked: 15 e-Cigarette/Vaping Use: Never Used Second Hand Smoke Exposure: No Current occupational status: employed 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, 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 Current occupational exposures/hazards: Yes Sexually active: Yes Sexual orientation: Straight/Heterosexual Gender identity: Female Cognitive needs: No Hearing needs: No Vision needs: No Female Reproductive History Menstrual Menopause type: natural Total pregnancies: 6 Full term: 4 Number of Living Children: 4 Ab spontaneous: 1 Date of last pap smear: 02/22/20 Date of Mammogram: 03/22/22 Review of Systems Const All systems reviewed & are unremarkable except as noted in HPI and below Card Reports as per HPI Resp Reports as per HPI GI Reports as per HPI and Reports no additional complaints Reports as per HPI Physical Exam Vital Signs: Last Vital Signs BP 126/74 02/06/23 07:56 BMI result Body Mass Index 26.6 Const General: cooperative, healthy appearing and comfortable Chest Chest palpation & inspection: normal inspection of the chest and normal palpation of entire chest wall Breast/axilla inspection: normal inspection of the breasts and normal inspection of the axillae Breast/axilla palpation: normal palpation of the breasts, normal palpation of the axillae and no axillary lymphadenopathy Resp Effort & Inspection: normal respiratory effort Auscultation: clear to auscultation bilaterally Percussion: percussion normal Cardio Palpation: normal PMI Rate: regular rate Rhythm: regular rhythm Heart sounds: no murmurs and no rubs Peripheral pulses: Peripheral pulses 2+ throughout GI Inspection: Yes normal to inspection Palpation (GI): Soft to palpation, nontender, no guarding, not rigid and No hepatosplenomegaly present Percussion: Yes normal to percussion Auscultation: normal bowel sounds Rectal Exam - Female: deferred General: Yes bladder normal to palpation External Female Exam: No lesion Speculum Exam - Vagina: normal appearance of the vagina, normal palpation, normal vaginal discharge and not erythematous Speculum Exam - Cervix: normal appearance of the cervix and normal palpation Bimanual exam- vagina & uterus: normal bimanual exam, normal palpation, uterine size normal, bladder normal to palpation, consistency normal and normal palpation Bimanual Exam- Adnexa, other: normal adnexae, no masses and no tenderness Assessment & Plan Assessment & Plan (1) Well woman exam: Code(s): Z01.419 - Encounter for gynecological examination (general) (routine) without abnormal findings Plan: Co testing not indicated this year. Counseled the patient about the recommended dietary allowance of 1200 mg of Calcium & 600 IU of vitamin D. Mammogram scheduled in few weeks , the patient is up-to-date with her screening colonoscopy . The patient was instructed to perform monthly self-breast exams and schedule annual exam in a year; all questions answered and the patient verbalized understanding. Coding Level of Care Code New Pt Prev Care 40-64y(30887) Diagnoses Well woman exam Z01.419
== END 2023-02-06 08:40 | disposition home or self-care (01) ==
LOC: HO.HWS 07:52
PROVIDERS: PCP Nurse Practitioner Family; Visit Provider Obstetrics & Gynecology
DX: Z01.419 Encounter for gynecological examination (general) (routine) without abnormal findings (principal)
CPT/HCPCS: 99386

== ENCOUNTER → 2023-02-06 07:52 | Outpatient (BNVA) | payer OTHER, SELFPAY | PROVIDERS: PCP Nurse Practitioner Family; Visit Provider Obstetrics & Gynecology ==

== ENCOUNTER 2023-02-12 10:33 | Outpatient (AMB) | payer OTHER, SELFPAY ==
--- NOTE | 2023-02-12 10:44 | MHC.OFFVIS ---
Intake Vital Signs 02/12/23 10:45 Height 5 ft 2 in Intake Visit Reasons: Rt wrist ganglion cyst-discuss surgery Intake Note: Dov 52 yr old 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 female presents today for her follow up visit for her right wrist ganglion cyst. Patient reports lump that comes and goes for the past 2.5 years. Lump returned about 8 months ago and has been growing in size. Numbness and tingling in hand/fingers. Her pain radiates up her arm and down to her fingers. Last seen with Lotus Link who would like patient to be further evaluated and discuss surgery with Dr. Saldana. Allergies ibuprofen [From MOTRIN] Adverse Reaction (Unknown, Verified 02/12/23 10:45) BRUISING Vicks Vaporub Allergy (Unknown, Uncoded 02/12/23 10:45) rash HPI Rt wrist ganglion cyst-discuss surgery HPI Details Dov is a 52 year old 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 woman who presents with complaints of a right volar wrist mass. She says this mass has been intermittent for ~2.5 years now, but has been increasing in size for ~8 months. She says she has pain that radiates from her wrist into her fingers and up into her forearm. 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 She told me that she had had a right carpal tunnel release in the past that had done well to alleviate her symptoms. She denies having trouble with numbness and tingling today. [facility] Medical History Anxiety Back pain Chronic insomnia Colon cancer screening Depression Dyspepsia Elevated cholesterol GERD (gastroesophageal reflux disease) Hypertension Invasive lobular carcinoma of right breast, stage 1 Nephrolithiasis Scoliosis Surgical History H/O oral surgery History of extraction of renal calculus History of lumpectomy of right breast (~03/16/20) Family History Mother History of diabetes mellitus History of fibromyalgia HTN (hypertension) Father Alzheimer disease Paternal Grandmother History of cancer Social History Household Members: Spouse and Children Housing: House Alcohol intake: current Alcohol intake frequency: holidays/special occasions only Patient Tobacco Use Status: Former Tobacco user Quit Date: 2016 Years Smoked: 15 e-Cigarette/Vaping Use: Never Used Second Hand Smoke Exposure: No Current occupational status: employed 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, 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 Current occupational exposures/hazards: Yes Sexual orientation: Straight/Heterosexual Gender identity: Female Cognitive needs: No Hearing needs: No Vision needs: No Review of Systems Const All systems reviewed & are unremarkable except as noted in HPI and below Physical Exam Const General: cooperative, healthy appearing and no acute distress Orientation/consciousness: patient oriented x3 HEENT Head: Yes normocephalic and Yes atraumatic Eyes EOM: EOMs intact bilaterally Resp Effort & Inspection: normal respiratory effort and able to speak in complete sentences Cardio Jugular venous distension: no JVD Skin General skin exam: turgor normal Rashes: no rashes Neuro General: patient oriented x3 Extrem Other: Evaluation of Right Upper Extremity: The patient is alert, oriented, and in no acute distress Neuro: Median, Ulnar, Radial nerves motor and sensory intact and sensation is normal to the tips of all digits No thenar or intrinsic wasting Good APB muscle belly firing and good finger cross Vascular: Cap refill brisk ROM: She can make a fist and extend all her digits No locking or catching Skin: No lacerations or abrasions. General: No Ecchymosis. No Erythema or evidence of infection. There is a mass on the volar aspect of her wrist, just proximal to the distal wrist crease and radial to the FCR tendon. This measures ~1.5cm in diameter and is consistent with a volar wrist ganglion Radiographs: 4 views of the right wrist were taken and viewed by me today in clinic. They show no fractures or dislocations Psych Appearance: grossly normal Affect: normal affect Attitude: cooperative Office Procedures Fracture Care Details: No fracture, aspiration Fracture Billing Code: Fracture Billing Code Results Reviewed Results Reviewed: 02/12/23 11:18 Lidocaine HCl 1 % [Xylocaine 1 %] 2 ml .ROUTE .STK-MED ONE Assessment & Plan Assessment & Plan (1) Ganglion cyst of volar aspect of left wrist: Code(s): M67.432 - Ganglion, left wrist Plan Assessment & Plan: 1. Right volar wrist ganglion Just proximal to the distal wrist crease and radial to the FCR tendon Measuring ~1.5cm in diameter I educated her about this condition I discussed operative and non-operative treatment options Given the location and size of the mass I recommend an aspiration today, and she is in agreement Aspiration #1: The risks and benefits of aspiration, including but not limited to risk of damage to blood vessels, nerves, tendons, infection, failure to improve symptoms, increased pain, recurrence and possible need for further aspirations or surgical intervention. After obtaining written consent, I sterilely prepped the area over the right wrist. I then injected subcutaneously with a small amount 1% lidocaine. I then passed an 18 gauge needle into the ganglion and aspirated some clear viscous fluid consistent with a ganglion. Some remaining viscous fluid was then pushed out of the ganglion. The patient tolerated this well and with no complications. She will follow up p.r.n. Scribed for Lesley Saldana MD by Dima Ortiz, medical practice manager, on 02/12/23 at 11:25 AM, EST. Coding Level of Care Code Est Pt Level 3 (75980) Diagnoses Ganglion cyst of volar aspect of left wrist M67.432 CPT Codes Fracture Care - Fracture Billing Code: Fracture Billing Code ([id number])
== END 2023-02-12 11:52 | disposition home or self-care (01) ==
PROVIDERS: PCP Nurse Practitioner Family; Visit Provider Orthopaedic Surgery
DX: M67.432 Ganglion, left wrist (principal)
CPT/HCPCS: 20612; 99213

== ENCOUNTER → 2023-02-12 10:33 | Outpatient (BNVA) | payer OTHER, SELFPAY | PROVIDERS: PCP Nurse Practitioner Family; Visit Provider Orthopaedic Surgery | DX: M67.432 Ganglion, left wrist (principal) | CPT/HCPCS: 20612; 99212 ==

== ENCOUNTER 2023-03-25 10:59 | Outpatient (REF) | payer OTHER, SELFPAY ==
--- NOTE | ~2023-03-25 | MM_ITS ---
EXAMINATION: MM DIAGNOSTIC DIGITAL BREAST TOMOSYNTHESIS, BILATERAL CLINICAL INFORMATION: Third year follow-up probable benign dystrophic calcifications at lumpectomy bed. History right lumpectomy 03/16/2020 invasive lobular cancer upper outer quadrant, status post breast conservation therapy. Primary lesion was architectural distortion. COMPARISON: Mammography: 03/22/2022, 08/21/2021, 02/23/2021, 03/16/2020, 03/01/2020, 02/25/2020, 08/27/2014 TECHNIQUE: Digital breast tomosynthesis is performed in both the craniocaudal and mediolateral oblique views along with computer-aided detection (CAD). Synthesized 2D images are generated from the tomosynthesis. In addition to standard views, spot magnification right CC and mediolateral views were also included. FINDINGS: The breasts are heterogeneously dense, which may obscure small masses (ACR BI-RADS breast composition Category c). Stable loosely grouped dystrophic appearing calcifications at the lumpectomy site upper outer right breast, not significantly changed. No new or progressive calcifications noted. Stable parenchymal changes from lumpectomy. There are otherwise no suspicious masses, suspicious grouped calcifications, or areas of architectural distortion in either breast. The parenchymal pattern is stable from prior exams. MM/MM tomosynthesis diagnostic BI IMPRESSION: No mammographic evidence of malignancy. Stable benign post therapy changes right breast upper outer quadrant. This completes 3 year post surgery protocol, and the patient should resume routine annual screening mammography. ASSESSMENT: BI-RADS BI-RADS 2 - Benign Findings RECOMMENDATION: 1 year F/U Results were provided to the patient at time of visit by the technologist. This patient's information was entered into a reminder system with a target due date for their next mammogram.
== END 2023-03-25 11:00 | disposition home or self-care (01) ==
LOC: HO.MAMMO 10:59
PROVIDERS: PCP Nurse Practitioner Family; Visit Provider Nurse Practitioner Family
DX: R92.1 Mammographic calcification found on diagnostic imaging of breast (principal)
CPT/HCPCS: 77062; 77066

== ENCOUNTER → 2023-03-25 11:00 | Outpatient (BNV) | payer OTHER, SELFPAY | PROVIDERS: PCP Nurse Practitioner Family; Visit Provider Radiology Diagnostic Radiology | DX: R92.333 Mammographic heterogeneous density, bilateral breasts (principal); R92.1 Mammographic calcification found on diagnostic imaging of breast | CPT/HCPCS: 77062; 77066 ==

== ENCOUNTER 2023-04-17 11:07 | Outpatient (AMB) | payer OTHER, SELFPAY ==
--- NOTE | 2023-04-17 11:08 | A.OFFPC_ITS ---
Vital Signs 04/17/23 11:13 Height 5 ft 2 in Weight 150 lb BMI 27.4 BP 126/82 Blood Pressure Location Rt brachial Position Sitting Pulse 78 Pulse Source Pulse Oximeter Pulse Oximetry (%) 99 Oxygen Delivery Method Room Air Intake Visit Reasons: Annual PE Allergies ibuprofen [From MOTRIN] Adverse Reaction (Unknown, Verified 04/17/23 11:14) BRUISING Vicks Vaporub Allergy (Unknown, Uncoded 04/17/23 11:14) rash Medication List - Last Reconciled 04/17/23 by DALLAS Patterson atorvastatin 20 mg PO DAILY cholecalciferol (vitamin D3) (Vitamin D3) 50 mcg PO DAILY citalopram (Celexa) 20 mg PO DAILY 4 days losartan 50 mg PO DAILY omeprazole 40 mg PO DAILY PRN tamoxifen 20 mg PO DAILY Tobacco use date assessed: 10/10/22 Dental Screening Dental Screen Date: 04/17/23 Did you have a dental visit in the last 12 months?: Yes Did you have a dental problem in the last 6 months where you did not have access to dental care?: No Was dental information given to patient?: Patient has dentist HPI Annual PE HPI Details Pt is here for a PE. Colon screen is up to date. Mammo is up to date. Has a medical sales. FIT test given to pt. HTN: stable PFSH Medical History Colon cancer screening GERD (gastroesophageal reflux disease) Elevated cholesterol Hypertension Invasive lobular carcinoma of right breast, stage 1 Back pain Anxiety Nephrolithiasis Scoliosis Dyspepsia Chronic insomnia Depression Surgical History H/O oral surgery History of lumpectomy of right breast (~03/16/20) History of extraction of renal calculus Family History Mother History of diabetes mellitus History of fibromyalgia HTN (hypertension) Father Alzheimer disease Paternal Grandmother History of cancer Social History Household Members: Spouse and Children Housing: House Alcohol intake: current Alcohol intake frequency: holidays/special occasions only Patient Tobacco Use Status: Former Tobacco user Quit Date: 2017 Years Smoked: 15 e-Cigarette/Vaping Use: Never Used Second Hand Smoke Exposure: No Current occupational status: employed 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 How often do you have a drink containing alcohol?: Never 3. How often do you have six or more drinks on one occasion?: Never Total Score: 0 Score Reviewed/Action Taken: No Review of Systems Const Denies chills and Denies fever(s) Eyes Denies blurry vision ENT Denies vertigo, Denies dizziness and Denies sore throat Card Denies chest pain at rest, Denies chest pain with activity, Denies diaphoresis, Denies dyspnea and Denies dyspnea on exertion Resp Denies cough, Denies dyspnea, Denies dyspnea on exertion and Denies wheezing GI Denies abdominal pain, Denies melena, Denies hematochezia, Denies constipation, Denies diarrhea and Denies loose stools Denies hematuria Musc Denies numbness and Denies tingling Skin/Breast Denies lesions Neuro Denies vertigo, Denies dizziness, Denies numbness and Denies tingling Psych Denies anxiety, Denies depression, Denies homicidal ideation, Denies suicidal ideation and Denies other (substance abuse) Aller/Immun Denies wheezing Physical exam (Primary Care) BMI result Body Mass Index 27.4 Tobacco/Smoking Status: Tobacco use Status Tobacco use date assessed 10/10/22 04/17/23 11:10 Patient Tobacco Use Status Former Tobacco user 04/17/23 11:10 e-Cigarette/Vaping Use Never Used 04/17/23 11:10 Const General: cooperative Nutritional Appearance: well nourished Orientation/consciousness: patient oriented x3 HENMT Head: Yes normal to inspection, Yes normocephalic and Yes atraumatic Ears: TM's normal bilaterally Eyes General: appearance normal, both eyes and all related structures Alignment and Position: alignment normal and position normal Neck Neck: Yes normal visual inspection and Yes no lymphadenopathy Thyroid: Thyroid normal Resp Effort & Inspection: normal respiratory effort Auscultation: clear to auscultation bilaterally Cardio Rate: regular rate Rhythm: regular rhythm Heart sounds: S1 normal heart sound present, S2 normal heart sound present and no murmurs GI Palpation (GI): Soft to palpation and nontender Auscultation: normal bowel sounds Skin Rashes: no rashes Neuro General: patient oriented x3, moves all extremities, no focal motor deficits and deep tendon reflexes 2+ bilaterally Romberg Test: Negative Psych Appearance: grossly normal Mental Status: mental status grossly normal Speech and movement: Normal speech and movement present Affect: normal affect Attitude: cooperative Thought process: Normal thought process present Thought content: Normal thought content present Insight: Good insight present (Psych) Judgement: Good judgement present (Psych) Assessment and Plan Assessment & Plan (1) Physical exam: Code(s): Z00.00 - Encounter for general adult medical examination without abnormal findings Plan: Labs ordered (2) Colon cancer screening: Code(s): Z12.11 - Encounter for screening for malignant neoplasm of colon Plan: FIT testing ordered as recommended by general surgery (3) Hypertension: Code(s): I10 - Essential (primary) hypertension Plan The patient agreed to the use of a faculty i on call medical assistant for this encounter. Scribed for AARON Connell-BC by Mel Guerin faculty i on call medical assistant, on 04/17/2023 at 11:25 EST Orders: Orders Comprehensive [place]. Panel Fast Today Z00.00 - Encounter for general adult medical examination without abnormal findings UA CC w/rflx Micro + Cult Today Z00.00 - Encounter for general adult medical examination without abnormal findings AMB EKG-In Office Today I10 - Essential (primary) hypertension, Z00.00 - Encounter for general adult medical examination without abnormal findings Complete Blood Count Auto Diff Today Z00.00 - Encounter for general adult medical examination without abnormal findings TSH reflex Free T4 Today Z00.00 - Encounter for general adult medical examination without abnormal findings Lipid Panel Today Z00.00 - Encounter for general adult medical examination without abnormal findings FITS Today Z12.11 - Encounter for screening for malignant neoplasm of colon Coding Level of Care Code Est Pt Prev Care 40-64y(26217) Diagnoses Physical exam Z00.00 Colon cancer screening Z12.11 Hypertension I10
[2023-04-17 11:13] VITALS: BP 126/82; PULSE 78; O2SAT 99; BMI 27.4
== END 2023-04-17 17:27 | disposition home or self-care (01) ==
PROVIDERS: PCP Nurse Practitioner Family; Visit Provider Nurse Practitioner Family
DX: Z00.00 Encounter for general adult medical examination without abnormal findings (principal); Z12.11 Encounter for screening for malignant neoplasm of colon; I10 Essential (primary) hypertension
CPT/HCPCS: 99396

== ENCOUNTER 2024-04-09 08:45 | Outpatient (REF) | payer OTHER, SELFPAY ==
--- NOTE | ~2024-04-09 | MM_ITS ---
EXAMINATION: MM SCREENING DIGITAL BREAST TOMOSYNTHESIS, BILATERAL CLINICAL INFORMATION: Screening. Asymptomatic. COMPARISON: Mammography: Comparison is made with available priors TECHNIQUE: Digital breast mammography with tomosynthesis is performed in both the craniocaudal and mediolateral oblique views along with computer-aided detection (CAD). FINDINGS: The breasts are heterogeneously dense, which may obscure small masses (ACR BI-RADS breast composition Category c). Postsurgical changes to the right breast. There are no significant masses, abnormal calcifications, or other abnormalities. MM/MM tomosynthesis screening BI IMPRESSION: No mammographic evidence of malignancy. ASSESSMENT: BI-RADS BI-RADS 2 - Benign Findings RECOMMENDATION: Routine annual mammography screening. 1 year F/U This examination should not preclude the clinical evaluation of a suspicious palpable abnormality. This patient's information was entered into a reminder system with a target due date for their next mammogram. Electronically signed by: Gauri Vasquez DO 04/20/2024 01:52 PM EDT
== END 2024-04-09 08:46 | disposition home or self-care (01) ==
LOC: HO.MAMMO 08:45
PROVIDERS: PCP Nurse Practitioner Family; Visit Provider Nurse Practitioner Family
DX: Z12.31 Encounter for screening mammogram for malignant neoplasm of breast (principal)
CPT/HCPCS: 77063; 77067

== ENCOUNTER → 2024-04-09 08:45 | Outpatient (BNV) | payer OTHER, SELFPAY | PROVIDERS: PCP Nurse Practitioner Family; Visit Provider Internal Medicine | DX: Z12.31 Encounter for screening mammogram for malignant neoplasm of breast (principal) | CPT/HCPCS: 77063; 77067 ==

== ENCOUNTER 2024-05-11 11:22 | Outpatient (AMB) | payer OTHER, SELFPAY ==
[2024-05-11 11:23] VITALS: BP 132/80; PULSE 88; O2SAT 97; BMI 25.6
--- NOTE | 2024-05-11 11:23 | MHC.PC.OV ---
Vital Signs 05/11/24 11:23 Height 5 ft 2 in Weight 140 lb BMI 25.6 BP 132/80 Blood Pressure Location Lt brachial Position Sitting Pulse 88 Pulse Source Pulse Oximeter Pulse Oximetry (%) 97 Intake Visit Reasons: ANNUAL PE Intake Note: pt is here for annual exam Luncheonette Operator Required: No Accompanied by: Self / Same As Patient Allergies ibuprofen [From MOTRIN] Adverse Reaction (Unknown, Verified 05/11/24 12:02) BRUISING Vicks Vaporub Allergy (Unknown, Uncoded 05/11/24 12:02) rash Medication List - Last Reconciled 05/11/24 by DALLAS Patterson atorvastatin 20 mg PO DAILY betamethasone dipropionate 0.05% 1 appl topical DAILY PRN 14 days cholecalciferol (vitamin D3) (Vitamin D3) 50 mcg PO DAILY citalopram (Celexa) 20 mg PO DAILY 4 days losartan 50 mg PO DAILY omeprazole 40 mg PO DAILY PRN tamoxifen 20 mg PO DAILY Tobacco use date assessed: 05/11/24 Dental Screening Dental Screen Date: 05/11/24 Did you have a dental visit in the last 12 months?: Yes Did you have a dental problem in the last 6 months where you did not have access to dental care?: No Was dental information given to patient?: Patient has dentist HPI ANNUAL PE HPI Details The patient is a 53-year-old female presenting for a routine physical examination and evaluation of a pruritic skin lesion on her left anterior ankle. The skin lesion has been present for approximately two to three months, characterized as a small faintly discolored region, intermittently pruritic with no drainage. The patient mentioned significant itching when the area is touched, which sometimes subsides with application of lotion post-shower. Colonoscopy is up-to-date . [facility] Medical History Colon cancer screening GERD (gastroesophageal reflux disease) Elevated cholesterol Hypertension Invasive lobular carcinoma of right breast, stage 1 Back pain Anxiety Nephrolithiasis Scoliosis Dyspepsia Chronic insomnia Depression Surgical History H/O oral surgery History of lumpectomy of right breast (~03/16/20) History of extraction of renal calculus Family History Mother History of diabetes mellitus History of fibromyalgia HTN (hypertension) Father Alzheimer disease Paternal Grandmother History of cancer Social History Household Members: Spouse and Children Housing: House Alcohol intake: current Alcohol intake frequency: holidays/special occasions only Patient Tobacco Use Status: Former Tobacco user Years Smoked: 15 e-Cigarette/Vaping Use: Never Used Second Hand Smoke Exposure: No Current occupational status: employed Current occupation: [employer], 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 1. Little interest or pleasure in doing things: more than half the days 2. Feeling down, depressed, or hopeless: more than half the days 3. Trouble falling or staying asleep, or sleeping too much: not at all 4. Feeling tired or having little energy: nearly every day 5. Poor appetite or overeating: more than half the days 6. Feeling bad about yourself - or that you are a failure or have let yourself or your family down: not at all 7. Trouble concentrating on things, such as reading the newspaper or watching television: several days 8. Moving or speaking so slowly that other people could have noticed. Or the opposite - being so fidgety or restless that you have been moving around a lot more than usual: not at all 9. Thoughts that you would be better off or of hurting yourself in some way: not at all Total score: 10 Depression Screening Interpretation: Positive Depression Screening Done: Yes 33138 - PHQ-9 Billing: Yes Source: Developed by Drs. Vinicio Lovell, Alisson Burnham, Harmeet Finn and colleagues, with an educational april from [employer]. Thrive Questionnaire Date Thrive assessed: 05/11/24 I am a: Patient What is your living situation today?: I have a steady place to live Within the past 12 months, did the food you bought not last and you didn't have the money to get more?: Never true Within the past 12 months, did you worry whether your food would run out before you got money to buy more?: Never true Do you have trouble paying for medicines?: No Do you have trouble getting transportation to medical appointments?: No Do you have trouble paying your heating and electricity bill?: No Do you have trouble taking care of your child, family member or friend?: No Do you have trouble with day-to-day activities such as bathing, preparing meals, shopping, managing finances, etc.?: No Are you currently unemployed and looking for a job?: No Are you interested in more education?: No Please select the resources that you would like help with: None Currently or been in a relationship where the following occur: I choose not to answer THRIVE Score: 0 AUDIT C Alcohol Use Questionnaire (AUDIT-C) 1. How often do you have a drink containing alcohol?: Never 3. How often do you have six or more drinks on one occasion?: Never Total Score: 0 Score Reviewed/Action Taken: Yes MARKUS-7 AMB Questionnaire MARKUS-7 Date MARKUS - 7 assessed: 05/11/24 Feeling nervous, anxious, or on edge: 2 = More than half the days Not being able to stop or control worryin = More than half the days Worrying too much about different things: 2 = More than half the days Trouble relaxin = Several days Being so restless that it is hard to sit still: 1 = Several days Becoming easily annoyed or irritable: 0 = Not at all Feeling afraid as if something awful might happen: 0 = Not at all Total MARKUS-7 score (0-4 normal; 5-9 mild; 10-14 moderate; 15-21 severe): 8 Source: Developed by Drs. Vinicio Lovell, Alisson Burnham, Harmeet Finn and colleagues, with an educational april from [employer]. MARKUS-7 Assessment Billing MARKUS-7 Assessment Tool: MARKUS-7 Assessment 13490 Review of Systems Const Details: - Dermatological: Reports pruritic skin lesion on left anterior ankle. Denies chest pain shortness of breath, diarrhea blood and stool, numbness and tingling Physical exam (Primary Care) Vital Signs: Last Vital Signs Pulse 88 05/11/24 11:23 BP 132/80 11/19/24 11:23 Pulse Ox 97 05/11/24 11:23 BMI result Body Mass Index 25.6 Tobacco/Smoking Status: Tobacco use Status Tobacco use date assessed 05/11/24 05/11/24 11:25 Patient Tobacco Use Status Former Tobacco user 05/11/24 11:25 e-Cigarette/Vaping Use Never Used 05/11/24 11:25 PHQ-9: PHQ-9 Score PHQ-9: Total score 10 05/11/24 11:25 Depression Screening Interpretation: Positive Thrive Assessment: Date of Thrive Assessment Date Thrive assessed 05/11/24 05/11/24 11:25 Currently or been in a relationship where the following occur: I choose not to answer Const Other: General: Cooperative, healthy appearing, comfortable, no acute distress and well developed Orientation: Patient oriented x3 Limitations: No limitations Head: Normal to inspection Ears: Hearing grossly normal bilaterally Nose: Normal external nose present Face and sinus: Normal facial exam Eyes: Appearance normal, both eyes and all related structures Neck: Normal visual inspection and Yes full ROM Respiratory: Normal respiratory effort and able to speak in complete sentences. Clear to auscultation bilaterally Cardiovascular: Regular rate and rhythm. Normal S1 and S2 GI: Normal to inspection. Soft to palpation and nontender Skin: Small macular, faintly discolored region to her left anterior ankle. No drainage. No surrounding erythema. Neuro: Patient oriented x3 Extremities: Normal to inspection Coding Level of Care Code Est Pt Prev Care 40-64y(94662) Diagnoses Screening for cervical cancer Z12.4 Physical exam Z00.00 Vitamin D deficiency E55.9 Skin lesion L98.9 Additional Codes MARKUS-7 Assessment Billing - MARKUS-7 Assessment Tool: MARKUS-7 Assessment 82513 ([id number]) PHQ-9 - 11812 - PHQ-9 Billing: Yes ([id number]) Assessment & Plan Assessment & Plan (1) Screening for cervical cancer: Code(s): Z12.4 - Encounter for screening for malignant neoplasm of cervix Category: Medical (2) Physical exam: Code(s): Z00.00 - Encounter for general adult medical examination without abnormal findings Category: Medical (3) Vitamin D deficiency: Code(s): E55.9 - Vitamin D deficiency, unspecified Category: Medical (4) Skin lesion: Code(s): L98.9 - Disorder of the skin and subcutaneous tissue, unspecified Category: Medical Plan - For the pruritic skin lesion, prescribe Betamethasone cream, to be applied topically once daily for management of symptoms. - Routine labs to be conducted after fasting, including a lipid panel and complete metabolic panel as part of wellness examination. Discussed lab draw timing post-fasting. - Follow-up on cancer screenings; mammogram reportedly up-to-date. - Referral to marketing sales representative noted for future follow-up, particularly due to history of breast cancer. Patient was informed and verbally consented to the use of an ambient scribe for clinic note documentation during this visit. Orders: Orders Complete Blood Count Auto Diff Today Z00.00 - Encounter for general adult medical examination without abnormal findings Comprehensive [place]. Panel Fast Today Z00.00 - Encounter for general adult medical examination without abnormal findings UA CC w/rflx Micro + Cult Today Z00.00 - Encounter for general adult medical examination without abnormal findings Lipid Panel Today Z00.00 - Encounter for general adult medical examination without abnormal findings Vitamin D 25-OH Total Today E55.9 - Vitamin D deficiency, unspecified TSH reflex Free T4 Today Z00.00 - Encounter for general adult medical examination without abnormal findings Referrals [facility] Referral Z12.4 - Encounter for screening for malignant neoplasm of cervix Medications: New betamethasone dipropionate 0.05% 1 appl topical DAILY PRN 45 grams 0RF skin irritation 14 days
== END 2024-05-11 11:53 | disposition home or self-care (01) ==
PROVIDERS: PCP Nurse Practitioner Family; Visit Provider Nurse Practitioner Family
DX: Z12.4 Encounter for screening for malignant neoplasm of cervix (principal); Z00.00 Encounter for general adult medical examination without abnormal findings; E55.9 Vitamin D deficiency, unspecified; L98.9 Disorder of the skin and subcutaneous tissue, unspecified

== ENCOUNTER → 2024-05-11 11:22 | Outpatient (BNVA) | payer OTHER, SELFPAY | PROVIDERS: PCP Nurse Practitioner Family; Visit Provider Nurse Practitioner Family | DX: Z00.00 Encounter for general adult medical examination without abnormal findings (principal); E55.9 Vitamin D deficiency, unspecified; L98.9 Disorder of the skin and subcutaneous tissue, unspecified | CPT/HCPCS: 96127 ==

== ENCOUNTER 2024-07-05 10:11 | Outpatient (REF) | payer OTHER, SELFPAY ==
[2024-07-05 13:03] LABS: Appearance Urine Cloudy; Color Urine Yellow; Glucose Urine UA Negative (Negative); Leukocyte Esterase Urine Small (1+) (Negative); Nitrite Urine Negative (Negative); PH 5.5 (5.0-9.0); UMIC TRIGGER UACC YES; Urine Blood Moderate (2+) (Negative); Urine Ketones Negative (Negative); Urine Protein Negative (Neg-Trace)
[2024-07-05 13:05] LABS: Bacteria Urine 3+ (None Seen); Hyaline Casts Urine 0-2 /LPF (0-2); MANUAL DIFF FLAG NO; UACC Culture Trigger YES
[2024-07-05 13:18] LABS: Basophils Percent Auto 0.5 % (0-2); Eosinophils Absolute Auto 0.2 X10*3/uL (0.0-0.4); Eosinophils Percent Auto 2.4 % (0-4); Hematocrit 36.4 % (37.0-47.0); Imm Gran Abs Auto 0.04 X10*3/uL (0.00-0.03); Imm Gran Pct Auto 0.6 % (0.0-0.4); Lymphocytes Absolute Auto 2.1 X10*3/uL (1.2-4.9); Lymphocytes Percent Auto 32.1 % (20-40); Mean Corpuscular Hemoglobin 31.3 pg (27.0-33.0); Mean Platelet Volume 10.4 fL (9.4-12.3); Monocytes Absolute Auto 0.5 X10*3/uL (0.1-1.2); Monocytes Percent Auto 7.6 % (2-11); Neutrophils Absolute Auto 3.7 x10*3/uL (2.0-8.3); Neutrophils Percent Auto 56.8 % (45-73); Platelet Count 181 X10*3/uL (160-400); Red Blood Count 3.83 X10*6/uL (4.20-5.50); White Blood Count 6.6 X10*3/uL (4.8-10.8)
[2024-07-05 13:50] LABS: Alanine Aminotransferase 14 U/L (0-31); Albumin Level 3.8 g/dL (3.5-5.0); Alkaline Phosphatase 35 U/L (39-117); Anion Gap 8 (12-20); Aspartate Amino Transferase 25 U/L (5-31); Bilirubin Total 0.4 mg/dL (0.0-1.0); Blood Urea Nitrogen 12 mg/dL (9-16); Calcium 8.3 mg/dL (8.4-10.2); Carbon Dioxide 29 mmol/L (22-29); Chloride 108 mmol/L (96-108); Cholesterol 201 mg/dL (<200); Estimated Glomerular Filt Rate > 60; Glucose Fasting 78 mg/dL (60-99); HDL Cholesterol 78 mg/dL (>40); LDL Cholesterol Calculated 108 mg/dL (<100); Potassium 3.7 mmol/L (3.3-5.1); Sodium 141 mmol/L (135-145); Total Protein 6.4 g/dL (6.5-8.0); Triglycerides 77 mg/dL (<150)
[2024-07-05 14:09] LABS: TSH reflex Free T4 1.78 uIU/mL (0.32-4.0); Vitamin D 25-OH Total 66.2 ng/mL (>30)
== END 2024-07-05 10:12 | disposition home or self-care (01) ==
LOC: HO.HMGCLDS 10:11
PROVIDERS: PCP Nurse Practitioner Family; Visit Provider Nurse Practitioner Family
DX: Z00.00 Encounter for general adult medical examination without abnormal findings (principal); E55.9 Vitamin D deficiency, unspecified; R31.29 Other microscopic hematuria
CPT/HCPCS: 36415; 80053; 80061; 81001; 81003; 82306; 84443; 85025; 87086

== ENCOUNTER 2024-09-07 10:15 | Outpatient (REF) | payer OTHER, SELFPAY ==
--- NOTE | ~2024-09-07 | CT_ITS ---
CLINICAL HISTORY: R31.29 - Other microscopic hematuria CT abdomen and pelvis with and without contrast Comparison: None Findings: The lung bases are clear. Unremarkable gallbladder and solid organs. Small nonobstructing renal calculi are present bilaterally. Visualized kidney collecting systems and visible portions of the ureters are unremarkable. Distal ureters are incompletely opacified with contrast. No bowel obstruction, pneumoperitoneum, or pneumatosis. Pelvic contents unremarkable. Visualized urinary bladder is unremarkable. The appendix is not visualized. No acute fracture. IMPRESSION: Small nonobstructing bilateral renal calculi. Visualized ureters and bladder unremarkable. This document has been electronically signed by: Sinan Deluna MD, PHD on 09/09/2024 02:15:38
[2024-09-07] MEDS: iohexoL 350 MG/ML 100 ML INFUS..BTL IV (12:43)
[2024-09-07 15:17] LABS: Creatinine POC 0.9 mg/dL (0.5-1.4); GFR POC > 60
== END 2024-09-07 10:16 | disposition home or self-care (01) ==
LOC: HO.CT 10:15
PROVIDERS: PCP Nurse Practitioner Family; Visit Provider Nurse Practitioner Family
DX: R31.29 Other microscopic hematuria (principal)
CPT/HCPCS: 74178; 82565; Q9967

== ENCOUNTER → 2024-09-07 10:22 | Outpatient (BNV) | payer OTHER, SELFPAY | PROVIDERS: PCP Nurse Practitioner Family; Visit Provider General Practice | DX: R31.29 Other microscopic hematuria (principal); N20.0 Calculus of kidney | CPT/HCPCS: 74178 ==

== ENCOUNTER 2024-12-26 13:56 | Emergency (ER) | payer OTHER, SELFPAY ==
--- NOTE | ~2024-12-26 | US_ITS ---
CLINICAL HISTORY: flank pain, hx stones Ultrasound left kidney. COMPARISON: CT abdomen and pelvis dated 09/07/24 at 10:27 EDT Technique: Real time sonographic imaging, including color-flow imaging, was performed by the payroll auditor. Multiple bilingual call center representative static images were saved for review. FINDINGS: Right kidney was not imaged. Urinary bladder was not imaged. Left kidney: Cortical medullary differentiation is maintained. Normal color flow by Doppler. Nonobstructing renal calculus at the superior pole measuring 0.3 x 0.3 cm. Nonobstructing renal calculus at the midportion measuring 0.4 x 0.5 cm. No hydronephrosis. Left kidney size: 11.0 x 6.2 x 7.5 cm IMPRESSION: 1. Limited imaging of the left kidney was performed. No evidence of left renal obstruction. 2. Nonobstructing left renal calculi present measuring up 2.5 and 0.3 cm. This document has been electronically signed by: Missael Valladares MD on 12/26/2024 16:23:46
--- NOTE | 2024-12-26 13:58 | ED_ITS ---
HPI - General Adult General Chief complaint: Abdominal Pain Stated complaint: kidney stones Time Seen by Provider: 12/26/24 15:53 Source: patient Mode of arrival: ambulatory Limitations: no limitations History of Present Illness ED Provider: MARI SHAHID PA-C HPI narrative: 54 year old female with pmhx significant for scoliosis, breast cancer in remission on Tamoxifen, HTN, nephrolithiasis, sciatica presents to the ED today for evaluation of left lower back pain x2 weeks. Describes this as a dull ache. Pain radiates down left buttock however does not extend past thigh. It also radiates to left lower abdomen/ groin. Pain is worse with movement. Admits to associated nausea and pain with urination. No hematuria. Trialed tylenol, motrin and heat packs at home which temporarily help her pain. Shes declining any pain control in ED. Denies known injury/ trauma. No recent heavy lifting. Related Data Previous Rx's ?Medication ?Instructions ?Recorded omeprazole 40 mg capsule,delayed 40 mg PO DAILY PRN Ac id Reflux #90 12/09/22 release caps atorvastatin 20 mg tablet 20 mg PO DAILY #90 tabs 11/13 citalopram 20 mg tablet (Celexa) 20 mg PO DAILY 4 days #90 tabs 12/29/23 betamethasone dipropionate 0.05 % 1 appl topical DAILY PRN skin 05/11/24 topical cream irritation 14 days #45 grams Lactobacillus rhamnosus GG 15 1 cap PO DAILY #90 caps 05/12/24 billion cell sprinkle capsule (Culturelle) cholecalciferol (vitamin D3) 50 50 mcg PO DAILY #90 ta bs 05/12/24 mcg (2,000 unit) tablet (Vitamin D3) losartan 50 mg tablet 50 mg PO DAILY #90 tabs 04/24 tamoxifen 20 mg tablet 20 mg PO DAILY #90 tabs 03/17 cyclobenzaprine 5 mg tablet 5 mg PO Q8H 3 days #9 tabs 12/26/24 lidocaine 5 % topical patch 1 patch topical DAILY #15 ea 12/26/24 (Lidoderm) Allergies Allergy/AdvReac Type Severity Reaction Status Date / Time ibuprofen (From MOTRIN) AdvReac Unknown BRUISING Verified 12/26/24 14:01 Vicks Vaporub Allergy Unknown rash Uncoded 05/11/24 12:02 Review of Systems 2 Review of Systems: Constitutional: No fever, chills, fatigue, night sweats, weight changes ENT/Mouth: No ear pain, hearing loss, nasal congestion, sinus pain, rhinorrhea, sore throat Eyes: No eye pain, swelling, redness, vision changes, discharge Cardio: No chest pain, palpitations, ARENAS, orthopnea, peripheral edema Pulm: No SOB, cough, sputum, wheezing, dyspnea, hemoptysis GI: No nausea, vomiting, hematemesis, abdominal pain, diarrhea, constipation, hematochezia, melena : No irregular bleeding, dysuria, frequency, urgency, hesitancy, hematuria, flank pain, urinary flow changes, urinary incontinence or retention MSK: No neck pain, joint pain, myalgias, +back pain Skin: No lesions, rashes Neuro: No weakness, numbness, paresthesias, LOC, dizziness, headache Psych: No anxiety/panic, depression, SI/HI, AH/VH All other systems reviewed and are negative. [facility] Past Medical History Attestation statement: The following information was validated with the patient. Source: old records reviewed and nursing notes reviewed Medical History Colon cancer screening GERD (gastroesophageal reflux disease) Elevated cholesterol Hypertension Invasive lobular carcinoma of right breast, stage 1 Back pain Anxiety Nephrolithiasis Scoliosis Dyspepsia Chronic insomnia Depression Surgical History H/O oral surgery History of lumpectomy of right breast (~03/16/20) History of extraction of renal calculus Family History Family History Mother History of diabetes mellitus History of fibromyalgia HTN (hypertension) Father Alzheimer disease Paternal Grandmother History of cancer Social History Social History Household Members: Spouse and Children Housing: House Alcohol intake: current Alcohol intake frequency: holidays/special occasions only Patient Tobacco Use Status: Former Tobacco user Years Smoked: 15 Smoked in Last 30 Days: No e-Cigarette/Vaping Use: Never Used Second Hand Smoke Exposure: No Use of substances other than those prescribed or required for medical reasons: No Advance Directives: No Advance Directives Information Provided: Yes Do you have a plan to hurt others: No Plan Current occupational status: employed 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 Skin: Warm, dry, intact. No rashes or lesions. Head: Normocephalic, atraumatic. EENT: Hearing is intact b/l. Conjunctiva clear. PERRLA. EOM intact. Moist mucous membranes.? Neck: Supple without LAD Cardiac: Chest wall symmetric. RRR Lungs: Normal respiratory effort without accessory muscle use. CTA bilaterally Abdomen: soft, non-tender, non-distended. No rebound tenderness or guarding. Positive BS x4. Back: No midline spinous tenderness or step-off deformity. There is left-sided lumbar paraspinal muscle tenderness to palpation. There are no overlying skin changes. No palpable deformities, fluctuance. Ext: Upper and lower extremities atraumatic, without tenderness, deformity, swelling or erythema. Neuro: AOx3. Normal speech. Strength 5/5 intact throughout. No saddle anesthesia. Sensation intact to light touch. NV intact distally. Ambulating with steady gait. Course Course Course Narrative: This is a rapid medical exam performed by Ashley Alston NP: Additional HPI, ROS, PE not included below will be deferred to primary provider. Patient is a 54-year-old female with history of nephrolithiasis presenting with complaint of left flank pain for 2 weeks, nausea with a few episodes of vomiting. Denies urinary symptoms. Denies fevers. Plan: labs, UA, renal u/s Reevaluation(s) Reevaluation #1: CBC without leukocytosis or left shift. Normocytic anemia, H and H appears to be around patient's baseline when compared to priors. Above transfusion threshold. Chemistry without acute electrolyte abnormality requiring intervention. No BONNIE. Liver function around baseline. Urine with trace leukocyte esterase, trace urine bacteria, negative nitrites. Will await urine culture for treatment. Renal ultrasound showing nonobstructing left renal calculi present, measuring 2.5 and 0.3 cm. No hydronephrosis. > patient given Zofran with improvement in nausea. Declining any pain medication at this time > her exam is concerning for more musculoskeletal etiology. She has had an unremarkable workup today. She is hemodynamically stable. Plan to treat supportively. Will send Flexeril and lidocaine patchs to pharmacy for treatment. she is agreeable with this. she has a follow up appointment with her PCP this friday (in 3 days). Patient has remained stable throughout ED visit today. Discussed worrisome signs and symptoms and when to return to the ED. All questions answered at this time. Patient is agreeable with disposition and stable for discharge. Medications Administered Discontinued Medications Generic Name Dose Route Start Last Admin Trade Name Sangq PRN Reason Stop Dose Admin Ondansetron HCl 4 mg 12/26/24 16:18 12/26/24 16:32 Ondansetron Odt 4 Mg Tab.Rapdis TRANSLINGU 12/26/24 16:19 4 mg ONCE ONE Administration Medical Decision Making Medical Decision Making [facility] Narrative: 54 year old female with pmhx significant for scoliosis, breast cancer in remission on Tamoxifen, HTN, nephrolithiasis, sciatica presents to the ED today for evaluation of left lower back pain x2 weeks. Vitals are stable. She is afebrile. She is generally well-appearing and in no acute distress. Abdomen is benign. There is left lumbar paraspinal muscle tenderness to palpation. There is no midline spinous tenderness. No back pain red flags. Labs, urine, renal ultrasound obtained from triage. Plan to review. Zofran ordered for nausea. Declining pain control Differential Diagnosis Differential Diagnoses: The differential diagnosis associated with the presentation includes renal stones, pyelonephritis, UTI, muscle sprain/strain, contusion, sciatica, athritis Admission/Observation not indicated. Lab Data [facility] Lab Attestation statement: I reviewed the patient's lab results. as above 12/26/24 14:43 12/26/24 14:43 Labs: Lab Results 12/26/24 12/26/24 Range/Units 14:43 14:46 WBC 6.3 (4.8-10.8) X10*3/uL RBC 3.73 L (4.20-5.50) X10*6/uL Hgb 11.8 L (12.0-16.0) g/dl Hct 34.6 L (37.0-47.0) % MCV 92.8 (80.0-98.0) fL MCH 31.6 (27.0-33.0) pg MCHC 34.1 (31.0-35.0) g/dl RDW 11.9 (11.0-16.0) % Plt Count 167 (160-400) X10*3/uL MPV 9.9 (9.4-12.3) fL Immature Gran % (Auto) 0.2 (0.0-0.4) % Neut % (Auto) 61.3 (45-73) % Lymph % (Auto) 28.5 (20-40) % [place] % (Auto) 7.6 (2-11) % Eos % (Auto) 2.1 (0-4) % Baso % (Auto) 0.3 (0-2) % Lymph # (Auto) 1.8 (1.2-4.9) X10*3/uL [place] # (Auto) 0.5 (0.1-1.2) X10*3/uL Eos # (Auto) 0.1 (0.0-0.4) X10*3/uL Baso # (Auto) 0.0 (0.0-0.2) X10*3/uL Abs Immat Gran (auto) 0.01 (0.00-0.03) X10*3/uL Absolute Neuts (auto) 3.9 (2.0-8.3) x10*3/uL Absolute Nucleated RBC 0.000 (0.0-0.012) X10*3/uL Nucleated RBC % (auto) 0.0 (0.0-0.2) /100WBC Sodium 141 (135-145) mmol/L Potassium 4.2 (3.3-5.1) mmol/L Chloride 106 (96-108) mmol/L Carbon Dioxide 27 (22-29) mmol/L Anion Gap 12 (12-20) BUN 12 (9-16) mg/dL Creatinine 0.53 (0.5-1.4) mg/dL Estim Creat Clear Calc 107.9 Estimated GFR > 60 Random Glucose 87 (60-115) mg/dL Calcium 8.7 (8.4-10.2) mg/dL Total Bilirubin 0.3 (0.0-1.0) mg/dL AST 23 (5-31) U/L ALT 15 (0-31) U/L Alkaline Phosphatase 37 L (39-117) U/L Total Protein 6.4 L (6.5-8.0) g/dL Albumin 3.9 (3.5-5.0) g/dL Urine Color Yellow Urine Appearance Turbid Urine pH 8.5 (5.0-9.0) Ur Specific [place] 1.015 (1.005-1.025) Urine Protein Negative (Neg-Trace) mg/dL Urine Glucose (UA) Negative (Negative) mg/dL Urine Ketones Negative (Negative) mg/dL Urine Blood Negative (Negative) Urine Nitrite Negative (Negative) Ur Leukocyte Esterase Trace H (Negative) Urine RBC 0-2 (0-2) /HPF Urine WBC 0-5 (0-5) /HPF Ur Squamous Epith Cells 0-2 (0-2) /HPF Urine Bacteria Trace (None Seen) Hyaline Casts 0-2 (0-2) /LPF Independent Interpretation I performed an independent interpretation of an: Ultrasound Interpretation: L renal US without hydronephrosis Radiology Impression Discussion of test interpretation with radiology: I have reviewed the radiologist's reading. Radiologist Impression: Date of Service: 12/26/24 Procedure(s): US renal LT Accession Number(s): [id number] cc: Enzo Blake [employer] B[employer]KE MECHANIC-BC; Deisy Alston NP~ CLINICAL HISTORY: flank pain, hx stones Ultrasound left kidney. COMPARISON: CT abdomen and pelvis dated 09/07/24 at 10:27 EDT Technique: Real time sonographic imaging, including color-flow imaging, was performed by the customer specialist. Multiple senior patient account representative static images were saved for review. FINDINGS: Right kidney was not imaged. Urinary bladder was not imaged. Left kidney: Cortical medullary differentiation is maintained. Normal color flow by Doppler. Nonobstructing renal calculus at the superior pole measuring 0.3 x 0.3 cm. Nonobstructing renal calculus at the midportion measuring 0.4 x 0.5 cm. No hydronephrosis. Left kidney size: 11.0 x 6.2 x 7.5 cm IMPRESSION: 1. Limited imaging of the left kidney was performed. No evidence of left renal obstruction. 2. Nonobstructing left renal calculi present measuring up 2.5 and 0.3 cm. This document has been electronically signed by: Missael Valladares MD on 12/26/2024 16:23:46 External Record Review External record reviewed: Inpatient record Prescription Management I considered prescription management with: Pain Medication Social Determinants Patient?s care significantly limited by Social Determinants of Health including: Other Social Determinant of Health Critical Care Time Critical Care Time Critical Care Time: No Discharge Plan Discharge Clinical Impression: Lumbar back pain Patient Disposition: Home, Self-Care Instructions: Acute Low Back Pain (ED) Additional Instructions: Your work up today is reassuring. As discussed, your pain is likely musculoskeletal in etiology. I recommend continuing Tylenol and Motrin at home as needed for pain/discomfort since this has been helping with your pain. I also recommend trialing a muscle relaxer. I have sent Flexeril to your pharmacy. I recommend taking this at night as this will help you sleep. Do not drink, drive or operate heavy machinery while taking this as it can make you drowsy. I am also sending lidocaine patches to your pharmacy. You may apply this to your low back as needed. Follow up with your primary care provider as you may require physical therapy. They will be able to provide you with a referral. Return with any new or worsening symptoms. In the case of an emergency call 911. Prescriptions: New lidocaine [Lidoderm] 5 % adhesive patch,medicated 1 patch topical DAILY Qty: 15 0RF Rx Instructions: leave on most painful area for up to 12 hrs cyclobenzaprine 5 mg tablet 5 mg PO Q8H 3 Days Qty: 9 0RF No Action omeprazole 40 mg capsule,delayed release(DR/EC) 40 mg PO DAILY PRN (Reason: Acid Reflux) Qty: 90 0RF atorvastatin 20 mg tablet 20 mg PO DAILY Qty: 90 1RF citalopram [Celexa] 20 mg tablet 20 mg PO DAILY 4 Days Qty: 90 3RF Rx Instructions: take 20 mg daily. Stop Paroxetine, due to interaction with tamoxifen. losartan 50 mg tablet 50 mg PO DAILY Qty: 90 1RF cholecalciferol (vitamin D3) [Vitamin D3] 50 mcg (2,000 unit) tablet 50 mcg PO DAILY Qty: 90 4RF Culturelle 15 billion cell capsule, sprinkle 1 cap PO DAILY Qty: 90 2RF tamoxifen 20 mg Tablet 20 mg PO DAILY Qty: 90 4RF betamethasone dipropionate 0.05 % cream 1 appl topical DAILY PRN (Reason: skin irritation) 14 Days Qty: 45 0RF Referrals: Enzo Blake, AIR B[employer]KE MECHANIC-BC [Primary Care Provider, Internal Medicine] Stand Alone Forms: Work/School Release Interventions: ED Discharge Assessment Last Done: 12/26/24 17:25 Discharge Date/Time: 12/26/24 17:26 Print Language: Sammarinese
[2024-12-26 14:01] VITALS: BP 132/74; PULSE 76; RESP 16; TEMP 36.4; O2SAT 97; BMI 23.3
[2024-12-26 14:53] LABS: MANUAL DIFF FLAG NO
[2024-12-26 14:56] LABS: Hematocrit 34.6 % (37.0-47.0); Hemoglobin 11.8 g/dl (12.0-16.0); Imm Gran Abs Auto 0.01 X10*3/uL (0.00-0.03); Imm Gran Pct Auto 0.2 % (0.0-0.4); Lymphocytes Absolute Auto 1.8 X10*3/uL (1.2-4.9); Mean Corpuscular HGB Conc 34.1 g/dl (31.0-35.0); Mean Corpuscular Hemoglobin 31.6 pg (27.0-33.0); Mean Corpuscular Volume 92.8 fL (80.0-98.0); NRBC Abs Auto 0.000 X10*3/uL (0.0-0.012); NRBC Pct Auto 0.0 /100WBC (0.0-0.2); Platelet Count 167 X10*3/uL (160-400); Red Blood Count 3.73 X10*6/uL (4.20-5.50); White Blood Count 6.3 X10*3/uL (4.8-10.8)
[2024-12-26 14:57] LABS: Appearance Urine Turbid; Glucose Urine UA Negative (Negative); PH 8.5 (5.0-9.0); Specific Gravity - Urine 1.015 (1.005-1.025); UMIC TRIGGER UACC YES
[2024-12-26 15:19] LABS: Alanine Aminotransferase 15 U/L (0-31); Albumin Level 3.9 g/dL (3.5-5.0); Alkaline Phosphatase 37 U/L (39-117); Anion Gap 12 (12-20); Aspartate Amino Transferase 23 U/L (5-31); Blood Urea Nitrogen 12 mg/dL (9-16); Calcium 8.7 mg/dL (8.4-10.2); Carbon Dioxide 27 mmol/L (22-29); Chloride 106 mmol/L (96-108); Creatinine Clr Calc Pharmacy 107.9; Estimated Glomerular Filt Rate > 60; Potassium 4.2 mmol/L (3.3-5.1); Sodium 141 mmol/L (135-145); Total Protein 6.4 g/dL (6.5-8.0)
[2024-12-26 16:03] VITALS: BP 123/78; PULSE 68; RESP 16; TEMP 36.2; O2SAT 99
[2024-12-26 17:25] VITALS: BP 123/78; PULSE 68; RESP 16; TEMP 36.2; O2SAT 99
== END 2024-12-26 17:26 | disposition home or self-care (01) ==
PROVIDERS: Registered Nurse Emergency; Emergency Provider Emergency Medicine; PCP Nurse Practitioner Family
DX: N20.0 Calculus of kidney (principal); R11.0 Nausea; R30.0 Dysuria; M54.50 Low back pain, unspecified; Z87.891 Personal history of nicotine dependence
CPT/HCPCS: 36415; 76775; 80053; 81001; 85025; 99284

== ENCOUNTER → 2024-12-26 14:01 | Outpatient (BNV) | payer OTHER, SELFPAY | PROVIDERS: PCP Nurse Practitioner Family; Visit Provider Radiology Diagnostic Radiology | DX: N20.0 Calculus of kidney (principal) | CPT/HCPCS: 76775 ==

== ENCOUNTER 2024-12-29 10:18 | Outpatient (AMB) | payer OTHER, SELFPAY ==
--- NOTE | 2024-12-29 10:19 | A.OFFPC_ITS ---
Vital Signs 12/29/24 10:20 Height 5 ft 2 in Weight 133 lb BMI 24.3 BP 112/64 Blood Pressure Location Lt brachial Position Sitting Respiration 18 Pulse 79 Pulse Source Pulse Oximeter Temp 98.2 F Temp Source Oral Pulse Oximetry (%) 98 Oxygen Delivery Method Room Air Intake Visit Reasons: high BP, heart failure Intake Note: Pt is here today for a sick visit. Pt c/o swelling in her legs. Allergies ibuprofen (From MOTRIN) Adverse Reaction (Unknown, Verified 12/29/24 10:24) BRUISING Vicks Vaporub Allergy (Unknown, Uncoded 12/29/24 10:24) rash Medication List - Last Reconciled 12/29/24 by AARON Patterson- atorvastatin 20 mg PO DAILY betamethasone dipropionate 0.05% 1 appl topical DAILY PRN 14 days cholecalciferol (vitamin D3) (Vitamin D3) 50 mcg PO DAILY citalopram (Celexa) 20 mg PO DAILY 4 days cyclobenzaprine 5 mg PO Q8H 3 days Lactobacillus rhamnosus GG (Culturelle) 1 cap PO DAILY lidocaine 5% (Lidoderm) 1 patch topical DAILY losartan 50 mg PO DAILY omeprazole 40 mg PO DAILY PRN prednisone 50 mg PO DAILY 5 days tamoxifen 20 mg PO DAILY Tobacco use date assessed: 12/29/24 Dental Screening Dental Screen Date: 12/29/24 Did you have a dental visit in the last 12 months?: Yes Did you have a dental problem in the last 6 months where you did not have access to dental care?: No Was dental information given to patient?: Patient has dentist HPI high BP, heart failure HPI Details Chief Complaint The patient presents with lower back pain radiating to the left buttock. History of Present Illness The patient is a 54-year-old female presenting with lower back pain. The pain is described as left lower back pain radiating to the left buttock, suggestive of sciatica. The pain is exacerbated by heel walking and is associated with paraspinal tenderness on palpation of the left lower back. A renal ultrasound was performed, which showed no moving kidney stones, ruling out nephrolithiasis as a cause of the pain. The patient has a history of kidney stones but currently shows no signs of active stones. The patient was initially prescribed Flexeril, which caused excessive drowsiness, leading to a switch to lidocaine patches for pain management. A 5- day course of prednisone was also initiated to manage inflammation. Neurological examination revealed a positive straight leg raise test on the left side, indicating nerve root irritation. There are no signs of cauda equina syndrome, as evidenced by the absence of bowel or bladder dysfunction. The patient denies any chest pain or shortness of breath, and there is no neuropathy extending down the entire left lower extremity, with symptoms localized to the left buttock and upper posterior thigh. The patient reports increased emotional lability, feeling more teary-eyed recently, but denies any suicidal or homicidal ideation. A behavioral health specialist will be consulted for further evaluation and management. Social History Health Maintenance Review of Systems - Musculoskeletal: Reports lower back pa in radiating to the left buttock. Denies neuropathy down the entire left lower extremity. - Neurological: Reports exacerbated pain with heel walking. - Respiratory: Denies chest pain or dysp mitali. - Psychological: Reports increased emoti onal lability. Denies suicidal or homicidal ideation. Physical Exam General: Cooperative, healthy appearing, comfortable, no acute distress and well developed Orientation: Patient oriented x3 Limitations: No limitations Head: Normal to inspection Ears: Hearing grossly normal bilaterally Nose: Normal external nose present Face and sinus: Normal facial exam Eyes: Appearance normal, both eyes and all related structures Neck: Normal visual inspection and Yes full ROM Respiratory: Normal respiratory effort and able to speak in complete sentences. Clear to auscultation bilaterally Cardiovascular: Regular rate and rhythm. Normal S1 and S2 GI: Normal to inspection. Soft to palpation and nontender Skin: No rashes or lesions noted Neuro: Patient oriented x3 Extremities: Left lower back tenderness with palpation. Positive straight leg test left side exacerbated pain with radicular symptoms with heel walking. No signs of cauda equina. No shoot neuropathy down her entire left lower extremity. Results - Renal ultrasound: No moving kidney sto yemi detected Plan The patient will continue with lidocaine patches for localized pain relief, as Flexeril caused excessive drowsiness. A 5-day course of prednisone has been pr escribed to address inflammation associated with the sciatica. Given the positive straight leg raise test and exacerbated pain with heel walking, the focus will be on managing nerve root irritation. The renal ultrasound confirmed the absence of active kidney stones, so nephrolithiasis is not a current concern. The patient will be referred to a behavioral health specialist to address her emotional lability and ensure appropriate mental health support. Discussion Notes I discussed with the patient the management of her lower back pain, emphasizing the use of lidocaine patches and the short course of prednisone to manage inflammation. We reviewed the renal ultrasound results, confirming no active kidney stones, and I reassured her that nephrolithiasis is not a current issue. I also addressed her emotional lability and arranged for a behavioral health consultation to provide further support (rocky speaking with pt). Patient Instructions - Use lidocaine patches as directed for pain relief. - Complete the 5-day course of prednison e as prescribed. - Follow up with the behavioral health s pecialist as scheduled. - Report any new or worsening symptoms i mmediately. [facility] Medical History (Updated 12/29/24 @ 10:59 by AARON Patterson-ALEJANDRO) Colon cancer screening GERD (gastroesophageal reflux disease) Elevated cholesterol Hypertension Invasive lobular carcinoma of right breast, stage 1 Back pain Anxiety Nephrolithiasis Scoliosis Dyspepsia Chronic insomnia Depression Surgical History H/O oral surgery History of lumpectomy of right breast (~03/16/20) History of extraction of renal calculus Family History Mother History of diabetes mellitus History of fibromyalgia HTN (hypertension) Father Alzheimer disease Paternal Grandmother History of cancer Social History Household Members: Spouse and Children Housing: House Alcohol intake: current Alcohol intake frequency: holidays/special occasions only Patient Tobacco Use Status: Former Tobacco user Years Smoked: 15 e-Cigarette/Vaping Use: Never Used Second Hand Smoke Exposure: No service: No Current occupational status: employed 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 1. Little interest or pleasure in doing things: not at all 2. Feeling down, depressed, or hopeless: several days 3. Trouble falling or staying asleep, or sleeping too much: nearly every day 4. Feeling tired or having little energy: nearly every day 5. Poor appetite or overeating: not at all 6. Feeling bad about yourself - or that you are a failure or have let yourself or your family down: not at all 7. Trouble concentrating on things, such as reading the newspaper or watching television: not at all 8. Moving or speaking so slowly that other people could have noticed. Or the opposite - being so fidgety or restless that you have been moving around a lot more than usual: not at all 9. Thoughts that you would be better off or of hurting yourself in some way: not at all Total score: 7 Depression Screening Interpretation: Positive (denies any si or hi, (Saúl to see pt ) Depression Screening Follow-up: Existing condition Depression Screening Done: Yes 20100 - PHQ-9 Billing: Yes Source: Developed by Drs. Vinicio Lovell, Alisson Burnham, Harmeet Finn and colleagues, with an educational april from [employer]. Thrive Questionnaire Date Thrive assessed: 12/29/24 I am a: Patient What is your living situation today?: I have a steady place to live Within the past 12 months, did the food you bought not last and you didn't have the money to get more?: Never true Within the past 12 months, did you worry whether your food would run out before you got money to buy more?: Never true Do you have trouble paying for medicines?: No Do you have trouble getting transportation to medical appointments?: No Do you have trouble paying your heating and electricity bill?: No Do you have trouble taking care of your child, family member or friend?: No Do you have trouble with day-to-day activities such as bathing, preparing meals, shopping, managing finances, etc.?: No Are you currently unemployed and looking for a job?: No Are you interested in more education?: No Please select the resources that you would like help with: None Currently or been in a relationship where the following occur: I choose not to answer THRIVE Score: 0 AUDIT C Alcohol Use Questionnaire (AUDIT-C) 1. How often do you have a drink containing alcohol?: Never 3. How often do you have six or more drinks on one occasion?: Never Total Score: 0 MARKUS-7 AMB Questionnaire MARKUS-7 Date MARKUS - 7 assessed: 12/29/24 Feeling nervous, anxious, or on edge: 2 = More than half the days Not being able to stop or control worryin = More than half the days Worrying too much about different things: 2 = More than half the days Trouble relaxin = Several days Being so restless that it is hard to sit still: 1 = Several days Becoming easily annoyed or irritable: 0 = Not at all Feeling afraid as if something awful might happen: 0 = Not at all Total MARKUS-7 score (0-4 normal; 5-9 mild; 10-14 moderate; 15-21 severe): 8 Source: Developed by Drs. Vinicio Lovell, Alisson Burnham, Harmeet Finn and colleagues, with an educational april from [employer]. MARKUS-7 Assessment Billing MARKUS-7 Assessment Tool: MARKUS-7 Assessment 83879 Physical exam (Primary Care) Vital Signs: Last Vital Signs Temp 98.2 F 12/29/24 10:20 Pulse 79 12/29/24 10:20 Resp 18 12/29/24 10:20 BP 112/64 12/29/24 10:20 Pulse Ox 98 12/29/24 10:20 Oxygen Delivery Method Room Air 12/29/24 10:20 BMI result Body Mass Index 24.3 Tobacco/Smoking Status: Tobacco use Status Tobacco use date assessed 12/29/24 12/29/24 10:28 Patient Tobacco Use Status Former Tobacco user 12/29/24 10:28 e-Cigarette/Vaping Use Never Used 12/29/24 10:28 PHQ-9: PHQ-9 Score PHQ-9: Total score 7 12/29/24 10:28 Depression Screening Interpretation: Positive (denies any si or hi, (Saúl sultana see pt ) Depression Screening Follow-up: Existing condition Thrive Assessment: Date of Thrive Assessment Date Thrive assessed 12/29/24 12/29/24 10:28 Currently or been in a relationship where the following occur: I choose not to answer Coding Level of Care Code Est Pt Level 4 (64552) Diagnoses Depression F32.9 Anxiety F41.9 Pain of back and lower extremity M54.9; M79.609 Additional Codes MARKUS-7 Assessment Billing - MARKUS-7 Assessment Tool: MARKUS-7 Assessment 68583 ([id number]) PHQ-9 - 11898 - PHQ-9 Billing: Yes ([id number]) Assessment & Plan Assessment & Plan (1) Depression: Code(s): F32.9 - Major depressive disorder, single episode, unspecified Category: Medical (2) Anxiety: Code(s): F41.9 - Anxiety disorder, unspecified Category: Medical (3) Pain of back and lower extremity: Code(s): M54.9 - Dorsalgia, unspecified; M79.609 - Pain in unspecified limb Category: Medical Plan . Orders: Orders XR lumbar spine 2-3V Today M54.9 - Dorsalgia, unspecified, M79.609 - Pain in unspecified limb Medications: New prednisone 50 mg PO DAILY 5 tabs 0RF 5 days
[2024-12-29 10:20] VITALS: BP 112/64; PULSE 79; RESP 18; TEMP 36.8; O2SAT 98; BMI 24.3
== END 2024-12-29 11:07 | disposition home or self-care (01) ==
LOC: HO.HMCC 10:19
PROVIDERS: PCP Nurse Practitioner Family; Visit Provider Nurse Practitioner Family
DX: F32.9 Major depressive disorder, single episode, unspecified (principal); F41.9 Anxiety disorder, unspecified; M54.9 Dorsalgia, unspecified; M79.609 Pain in unspecified limb

== ENCOUNTER 2024-12-29 10:18 | Outpatient (REF) | payer OTHER, SELFPAY ==
--- NOTE | ~2024-12-29 | XR_ITS ---
EXAMINATION: XR LUMBOSACRAL SPINE CLINICAL INFORMATION: M54.9 - Dorsalgia, unspecified COMPARISON: None available. TECHNIQUE: AP and lateral views FINDINGS: Levoconvex curvature of the lumbar spine. Multilevel endplate sclerosis. Small marginal osteophyte formation from L3-4 to L5-S1. No acute cortical disruption or gross malalignment. Facet joint hypertrophy at L4-5 and L5-S1. Spina bifida occulta, S1, congenital. Vascular calcification, aorta. XR/XR lumbar spine 2-3V IMPRESSION: Multilevel spondylosis and levoconvex scoliosis. No acute fracture or listhesis. Atherosclerosis disease. Electronically signed by: Nagi Loja MD 12/29/2024 11:24 AM EDT
== END 2024-12-29 10:19 | disposition home or self-care (01) ==
LOC: HO.HMGCX 10:18
PROVIDERS: PCP Nurse Practitioner Family; Visit Provider Nurse Practitioner Family
DX: I11.0 Hypertensive heart disease with heart failure (principal); I50.9 Heart failure, unspecified; M54.50 Low back pain, unspecified; F32.9 Major depressive disorder, single episode, unspecified; F41.9 Anxiety disorder, unspecified; M79.609 Pain in unspecified limb
CPT/HCPCS: 72100; 96127; 99212

== ENCOUNTER → 2024-12-29 11:12 | Outpatient (BNV) | payer OTHER, SELFPAY | PROVIDERS: PCP Nurse Practitioner Family; Visit Provider Radiology Diagnostic Radiology | DX: M47.816 Spondylosis without myelopathy or radiculopathy, lumbar region (principal) | CPT/HCPCS: 72100 ==

== ENCOUNTER 2025-01-10 07:40 | Outpatient (AMB) | payer OTHER, SELFPAY ==
[2025-01-10 07:48] VITALS: BP 110/70; PULSE 79; TEMP 36.7; O2SAT 99; BMI 24.0
--- NOTE | 2025-01-10 07:48 | AM.OFFWIN_ITS ---
Intake Vital Signs 01/10/25 07:48 Height 5 ft 2 in Weight 131 lb BMI 24.0 BP 110/70 Blood Pressure Location Rt brachial Position Sitting Pulse 79 Pulse Source Pulse Oximeter Temp 98.1 F Temp Source Oral Pulse Oximetry (%) 99 Oxygen Delivery Method Room Air Intake Visit Reasons: EP Back pain Intake Note: presents with low back pain radiating pain down to feet; LT > RT Patient Tobacco Use Status: Former Tobacco user Allergies meloxicam Adverse Reaction (Mild, Verified 01/10/25 07:55) Nausea ibuprofen (From MOTRIN) Adverse Reaction (Unknown, Verified 01/10/25 07:55) BRUISING Vicks Vaporub Allergy (Unknown, Uncoded 12/29/24 10:24) rash Do you need a note to return to daycare/school/sports/work: Yes HPI HPI Comments History of Present Illness Details History - The patient is a 54-year-old female pr esenting with severe pain in the left side and legs, impacting mobility and work ability. - The pain began approximately one month ago and has been severe enough to prevent her from working. - She initially suspected sciatica and v isited the emergency room, where imaging revealed spondylosis. - She has been unable to work for two we eks due to the pain. - Previous treatments included prednison e, meloxicam, and cyclobenzaprine, which were either ineffective or caused adverse effects. - She has a history of being treated wit h tramadol for chronic pain due to a curved spine, which was effective in the past. - She was taken off of it by her current PCP. - The patient experiences numbness in th e legs when standing or sitting for extended periods. - She has a history of menopause and dep ression, which she believes may be contributing to her current condition. - She has no kidney stones, urinary symp toms, saddle anesthesia, or incontinence. Physical Exam General: cooperative, healthy appearing and comfortable, patient oriented x3 Head: Normal to inspection, normocephalic/atraumatic Effort & Inspection: Normal respiratory effort and able to speak in complete sentences. Cardiac: RRR, no M/R/G noted. Normal S1 and S2. Respiratory: Clear to auscultation bilaterally. No w/r/r noted. Back/spine: No CVA tenderness bilaterally. Cervical, thoracic and lumbar spine normal to inspection. Cervical ROM normal, no midline spinous tenderness noted. Thoracic ROM normal, lumbar ROM normal. No midline vertebral spinous tenderness noted. No step offs noted. TTP of the thoracic and lumbar paraspinous and paravertebral muscles on the left. DTR are 2+ on the lower extremities noted. Ambulates with a steady gait. Extremities: Straight leg raise test negative on right; Straight leg raise test negative on left; motor strength normal 5/5 bilaterally. Neuro: Sensation intact. Patient was informed and verbally consented to the use of an ambient scribe for clinic note documentation during this visit. [facility] Medical History (Updated 12/29/24 @ 10:59 [facility] Colon cancer screening GERD (gastroesophageal reflux disease) Elevated cholesterol Hypertension Invasive lobular carcinoma of right breast, stage 1 Back pain Anxiety Nephrolithiasis Scoliosis Dyspepsia Chronic insomnia Depression Surgical History H/O oral surgery History of lumpectomy of right breast (~03/16/20) History of extraction of renal calculus Family History Mother History of diabetes mellitus History of fibromyalgia HTN (hypertension) Father Alzheimer disease Paternal Grandmother History of cancer Social History Household Members: Spouse and Children Housing: House Alcohol intake: current Alcohol intake frequency: holidays/special occasions only Patient Tobacco Use Status: Former Tobacco user Years Smoked: 15 e-Cigarette/Vaping Use: Never Used Second Hand Smoke Exposure: No service: No Current occupational status: employed Current occupation: [employer]- [employer], 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 Current occupational exposures/hazards: Yes Sexual orientation: Straight/Heterosexual Gender identity: Female Cognitive needs: No Hearing needs: No Vision needs: No Review of Systems Const All systems reviewed & are unremarkable except as noted in HPI and below Physical Exam Vital Signs: Last Vital Signs Temp 98.1 F 01/10/25 07:48 Pulse 79 01/10/25 07:48 BP 110/70 01/10/25 07:48 Pulse Ox 99 01/10/25 07:48 Oxygen Delivery Method Room Air 01/10/25 07:48 BMI result Body Mass Index 24.0 Assessment & Plan Assessment & Plan (1) Back pain: Code(s): M54.9 - Dorsalgia, unspecified Qualifiers: Back pain laterality: left Back pain location: low back pain Chronicity: chronic Sciatica presence: without sciatica Qualified Code(s): M54.50 - Low back pain, unspecified; G89.29 - Other chronic pain Plan Most likely Scoliosis vs sciatica vs arthritis vs strain Plan - Rest and heat to the area - Tylenol as needed for pain - Continue with lidocaine patches - Will give her a few days of Tramadol as requested by patient and (was on this in the past and other medications do not work for her) - Referral to physical therapy for pain management and mobility improvement. - Consideration for orthopedic consultation for further evaluation and potential interventions such as injections. - Has FMLA paperwork for her PCP - Wants a work note for a week, gave her 3 days and told her to f/u Orders: Orders PT Evaluation and Treatment Today M54.9 - Dorsalgia, unspecified Referrals Orthopedics Referral M54.9 - Dorsalgia, unspecified Medications: New tramadol 25 mg PO Q8H PRN 10 tabs 0RF pain 3 days Coding Level of Care Code Est Pt Level 4 (89306) Diagnoses Chronic left-sided low back pain without sciatica M54.50; G89.29 Back pain laterality: left Back pain location: low back pain Chronicity: chronic Sciatica presence: without sciatica
== END 2025-01-10 09:03 | disposition home or self-care (01) ==
PROVIDERS: PCP Nurse Practitioner Family; Visit Provider Physician Assistant Medical
DX: M54.50 Low back pain, unspecified (principal); G89.29 Other chronic pain

== ENCOUNTER → 2025-01-10 07:40 | Outpatient (BNVA) | payer OTHER, SELFPAY | PROVIDERS: PCP Nurse Practitioner Family; Visit Provider Physician Assistant Medical | DX: M54.50 Low back pain, unspecified (principal); G89.29 Other chronic pain | CPT/HCPCS: 99212 ==

== ENCOUNTER 2025-01-11 09:31 | Outpatient (AMB) | payer OTHER, SELFPAY ==
--- NOTE | 2025-01-11 09:33 | MHC.OFFVIS ---
Vital Signs 01/11/25 09:43 Height 5 ft 2 in Weight 131 lb BMI 24.0 BP 132/87 Blood Pressure Location Lt brachial Position Sitting Pulse 100 Intake Visit Reasons: overdue breast exam Intake Note: Patient is seen in office for overdue breast exam. 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 Commercial Census Taker: Commercial Census Taker Present Accompanied by: Self / Same As Patient Allergies meloxicam Adverse Reaction (Mild, Verified 01/11/25 09:40) Nausea ibuprofen (From MOTRIN) Adverse Reaction (Unknown, Verified 01/11/25 09:40) BRUISING Vicks Vaporub Allergy (Unknown, Uncoded 01/11/25 09:40) rash Medication List - Last Reconciled 01/11/25 by Enzo Zepeda MD atorvastatin 20 mg PO DAILY cholecalciferol (vitamin D3) (Vitamin D3) 50 mcg PO DAILY citalopram (Celexa) 20 mg PO DAILY 4 days Lactobacillus rhamnosus GG (Culturelle) 1 cap PO DAILY lidocaine 5% (Lidoderm) 1 patch topical DAILY losartan 50 mg PO DAILY omeprazole 40 mg PO DAILY PRN tamoxifen 20 mg PO DAILY tramadol 25 mg PO Q8H PRN 3 days triamcinolone acetonide 0.5% 1 appl topical BID HPI Comments Details: 54-year-old female patient presenting on 02/29/2020 with complaints of pain in the left breast at the upper outer quadrant adjacent to the nipple-areolar complex of 2 months' duration. Workup with mammogram and ultrasound revealed no suspicious changes in the left breast however an area of architectural distortion was identified in the right breast. This was regarding suspicious for malignancy and stereotactic guided core biopsy performed on 03/01/2020. This revealed invasive lobular carcinoma grade 1, ER positive, KS positive. On 03/16/2020 she underwent a right breast lumpectomy with needle localization and right axillary sentinel node biopsy. Pathology revealed no residual carcinoma and 0 5 sentinel nodes were negative for metastatic disease. She was subsequently evaluated by Dr. Aldana who recommended adjuvant radiation therapy and tamoxifen. She completed radiation therapy at [facility] on 06/11/2020 and tolerated this well. Her most recent mammogram of 04/09/2024 revealed no mammographic evidence of malignancy (BI-RADS 2). She is scheduled for her annual mammogram on 04/15/2025. She is 5 para 5 with a 1 child . She reports breast-feeding her children for a short time. She feels well and denies any ongoing breast symptoms at this time. [facility] Medical History Colon cancer screening GERD (gastroesophageal reflux disease) Elevated cholesterol Hypertension Invasive lobular carcinoma of right breast, stage 1 Back pain Anxiety Nephrolithiasis Scoliosis Dyspepsia Chronic insomnia Depression Surgical History H/O oral surgery History of lumpectomy of right breast (~03/16/20) History of extraction of renal calculus Family History Mother History of diabetes mellitus History of fibromyalgia HTN (hypertension) Father Alzheimer disease Paternal Grandmother History of cancer Social History Household Members: Spouse and Children Housing: House Alcohol intake: current Alcohol intake frequency: holidays/special occasions only Patient Tobacco Use Status: Former Tobacco user Years Smoked: 15 e-Cigarette/Vaping Use: Never Used Second Hand Smoke Exposure: No service: No Current occupational status: employed 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, 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 Current occupational exposures/hazards: Yes Sexual orientation: Straight/Heterosexual Gender identity: Female Cognitive needs: No Hearing needs: No Vision needs: No Review of Systems Const All systems reviewed & are unremarkable except as noted in HPI and below Denies nipple discharge Skin/Breast Reports breast pain, Denies breast mass, Denies change in breast shape, Denies change in pigmentation and Denies nipple discharge Physical Exam Vital Signs: Last Vital Signs Pulse 100 01/11/25 09:43 BP 132/87 01/11/25 09:43 BMI result Body Mass Index 24.0 Const General: cooperative, healthy appearing, comfortable and no acute distress Chest Other: Right breast with a well-healed incision in the upper outer quadrant. No skin change, nipple discharge, nipple inversion, palpable mass, or enlarged lymph nodes. Left breast: No skin change, nipple discharge, nipple retraction, palpable mass, or enlarged lymph nodes. Resp Effort & Inspection: normal respiratory effort, no audible wheezes, no cough and no respiratory distress GI Inspection: Yes normal to inspection Skin Other: Warm and dry, no rash Neuro Other: Mobility Assessment: 1. 3 meter assessment time (seconds):5 2. Gait observations: Normal balance and gait Extrem Other: No lymphedema right arm Assessment & Plan Assessment & Plan (1) Invasive lobular carcinoma of right breast, stage 1: Code(s): C50.911 - Malignant neoplasm of unspecified site of right female breast Category: Medical Plan: 54-year-old female patient with history of right breast lobular carcinoma invasive status post lumpectomy and axillary node sentinel biopsy on 03/16/2020. Patient completed radiation therapy to the right breast in May 2020. She is currently on tamoxifen which she is tolerating well. Examination today reveals no evidence of recurrence disease in either breast. She is due for an annual mammogram on 04/15/2025. I have asked her to return for follow-up examination in approximately 1 year. She is welcome to call sooner for any new concerns. Coding Level of Care Code Est Pt Level 3 (94502) Complex EM visit Add On G2211 Diagnoses Invasive lobular carcinoma of right breast, stage 1 C50.911
[2025-01-11 09:43] VITALS: BP 132/87; PULSE 100; BMI 24.0
--- OUTSIDE RECORDS SUMMARY | 2025-01-11 10:09 | XMS_ITS | Encounter Summary ---
Author Organization [facility] Address [address] [facility] [address] [place] [address] Phone Care Team Providers Care Traverse Rod Assembler Name Role Phone Barbara Mobley MD Unavailable [phone] Enzo Blake NP Primary Care Provider + Encounter Details Date Type Department Care Team (Late st Contact Info) Description 04/10/2020 Ancillary Orders [facility],Outside Imaging [address] [place] [address] System, Provider Not In, [place] [address] Social History Tobacco Use Types Packs/Day Years Used Date Smoking Tobacco: Never Assessed Comments Unknown Sex and Gender Information Value Date Recorded Sex Assigned at Not on file Legal Sex Female 9:36 PM EDT Gender Identity Not on file Sexual Orientation Not on file documented as of this encounter Plan of Treatment Not on file documented as of this encounter Results * Mammogram Outside (No Interpretation) (03/16/2020 12:00 AM EDT) Narrative SYSTEMGENERATED, DOCUMENTATION - 04/10/2020 3:08 PM EDT This study is for PACS storage only and not for interpretation. us Provider Not In System PhD IMG OUTSIDE IMAGING W /OUT INTERPRETATION Final Result * Mammogram Outside (No Interpretation) (03/01/2020 12:00 AM EDT) Narrative SYSTEMGENERATED, DOCUMENTATION - 04/10/2020 3:11 PM EDT This study is for PACS storage only and not for interpretation. us Provider Not In System PhD IMG OUTSIDE IMAGING W /OUT INTERPRETATION Final Result * Mammogram Outside (No Interpretation) (02/25/2020 12:00 AM EDT) Narrative SYSTEMGENERATED, DOCUMENTATION - 04/10/2020 3:12 PM EDT This study is for PACS storage only and not for interpretation. us Provider Not In System PhD IMG OUTSIDE IMAGING W /OUT INTERPRETATION Final Result documented in this encounter Visit Diagnoses Not on filedocumented in this encounter Care Teams Traverse Rod Assembler Relationship Specialty Start Date End Date Enzo Blake NP [address] [place] [address] [email or web address] PCP - General Nurse Practitioner 05/25/24 Barbara Mobley MD [address] [place] [address] Orthopedics & Sports Medicine, [facility] [place] [address] [email or web address] Historical LMR Provider 04/09/17 documented as of this encounter Additional Source Comments The information contained in this document represents components of the legal health record. It is not the complete legal health record.[facility]
== END 2025-01-11 09:52 | disposition home or self-care (01) ==
LOC: HO.HGS 09:32
PROVIDERS: PCP Nurse Practitioner Family; Visit Provider Surgery
DX: C50.911 Malignant neoplasm of unspecified site of right female breast (principal)
CPT/HCPCS: 99213; G2211

== ENCOUNTER → 2025-01-11 09:31 | Outpatient (BNVA) | payer OTHER, SELFPAY | PROVIDERS: PCP Nurse Practitioner Family; Visit Provider Surgery | DX: C50.911 Malignant neoplasm of unspecified site of right female breast (principal); Z79.810 Long term (current) use of selective estrogen receptor modulators (SERMs) | CPT/HCPCS: 99212 ==

== ENCOUNTER 2025-01-19 14:09 | Outpatient (AMB) | payer OTHER, SELFPAY ==
--- NOTE | 2025-01-19 14:29 | MHC.PC.OV ---
Vital Signs 01/19/25 14:34 Height 5 ft 4 in Weight 134 lb BMI 23.0 BP 138/88 Blood Pressure Location Lt brachial Position Sitting Respiration 16 Pulse 76 Pulse Source Pulse Oximeter Temp 98.2 F Temp Source Oral Pulse Oximetry (%) 96 Oxygen Delivery Method Room Air Intake Visit Reasons: Office visit Stonemason Helper Required: No Accompanied by: Self / Same As Patient Allergies ibuprofen (From MOTRIN) Adverse Reaction (Unknown, Verified 01/19/25 14:30) BRUISING Vicks Vaporub Allergy (Unknown, Uncoded 01/11/25 09:40) rash Medication List - Last Reconciled 01/19/25 by Enzo Blake, [facility]- atorvastatin 20 mg PO DAILY cholecalciferol (vitamin D3) (Vitamin D3) 50 mcg PO DAILY citalopram (Celexa) 20 mg PO DAILY 4 days Lactobacillus rhamnosus GG (Culturelle) 1 cap PO DAILY lidocaine 5% (Lidoderm) 1 patch topical DAILY losartan 50 mg PO DAILY omeprazole 40 mg PO DAILY PRN tamoxifen 20 mg PO DAILY tramadol 50 mg PO DAILY 20 days triamcinolone acetonide 0.5% 1 appl topical BID Tobacco use date assessed: 01/19/25 Dental Screening Dental Screen Date: 01/19/25 Did you have a dental visit in the last 12 months?: Yes Did you have a dental problem in the last 6 months where you did not have access to dental care?: No HPI Office visit HPI Details Chief Complaint The patient presents with back pain and a desire to return to work. History of Present Illness The patient is a 54-year-old female presenting with back pain following a fall. She was recently seen in a walk-in clinic and was referred to physical therapy, which she plans to attend. She expresses a strong desire to return to work, feeling increasingly depressed at home due to inactivity. The patient reports that tramadol provides relief for her back pain, although the muscle relaxer prescribed causes significant drowsiness. She has been advised to avoid lifting heavy objects and to be mindful of body mechanics to prevent exacerbation of her condition. She denies any symptoms indicative of cauda equina syndrome. Social History - Employment: Patient is eager to return to work and reports feeling depressed due to being at home. Health Maintenance Review of Systems - Musculoskeletal: Reports back pain, denies symptoms of cauda equina syndrome. - Neurological: Denies any neurological deficits. Physical Exam General: Cooperative, healthy appearing, comfortable, no acute distress and well developed Orientation: Patient oriented x3 Limitations: No limitations Head: Normal to inspection Ears: Hearing grossly normal bilaterally Nose: Normal external nose present Face and sinus: Normal facial exam Eyes: Appearance normal, both eyes and all related structures Neck: Normal visual inspection and Yes full ROM Respiratory: Normal respiratory effort and able to speak in complete sentences. Clear to auscultation bilaterally Cardiovascular: Regular rate and rhythm. Normal S1 and S2 GI: Normal to inspection. Soft to palpation and nontender Neuro: Patient oriented x3 Extremities: Normal to inspection Results Plan The patient will continue with physical therapy to aid in her recovery from back pain. She is advised to avoid lifting heavy objects and to practice proper body mechanics at work. Tramadol will be prescribed for intermittent use to manage pain, while the muscle relaxer will be used cautiously due to its sedative effects. The patient will be cleared to return to work with the stipulation of avoiding heavy lifting and monitoring her response to physical therapy. [facility] paperwork will be completed to cover her absence from work and to provide for intermittent leave if necessary. Discussion Notes I discussed with the patient the importance of continuing physical therapy and avoiding heavy lifting to prevent further injury. We agreed on the use of tramadol for pain management and the cautious use of muscle relaxers due to their sedative effects. I will complete her [place] paperwork to support her return to work and provide for intermittent leave if needed. She knows she cannot drive on tramadol, share the med, and only take as prescribed. Patient Instructions - Continue with physical therapy sessions as scheduled. - Avoid lifting heavy objects and practice proper body mechanics. - Use tramadol as prescribed for pain management. - Monitor response to physical therapy and report any issues. [facility] Medical History Colon cancer screening GERD (gastroesophageal reflux disease) Elevated cholesterol Hypertension Invasive lobular carcinoma of right breast, stage 1 Back pain Anxiety Nephrolithiasis Scoliosis Dyspepsia Chronic insomnia Depression Surgical History H/O oral surgery History of lumpectomy of right breast (~03/16/20) History of extraction of renal calculus Family History Mother History of diabetes mellitus History of fibromyalgia HTN (hypertension) Father Alzheimer disease Paternal Grandmother History of cancer Social History Household Members: Spouse and Children Housing: House Alcohol intake: current Alcohol intake frequency: holidays/special occasions only Patient Tobacco Use Status: Former Tobacco user Years Smoked: 15 e-Cigarette/Vaping Use: Never Used Second Hand Smoke Exposure: No service: No Current occupational status: employed Current occupation: [employer]- [employer], 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 Current occupational exposures/hazards: Yes Sexual orientation: Straight/Heterosexual Gender identity: Female Cognitive needs: No Hearing needs: No Vision needs: No Questionnaire Thrive Questionnaire Date Thrive assessed: 12/29/24 MARKUS-7 AMB Questionnaire MARKUS-7 Date MARKUS - 7 assessed: 12/29/24 Source: Developed by Drs. Vinicio Lovell, Alisson Burnham, Harmeet Finn and colleagues, with an educational april from [employer]. Physical exam (Primary Care) Vital Signs: Last Vital Signs Temp 98.2 F 01/19/25 14:34 Pulse 76 01/19/25 14:34 Resp 16 01/19/25 14:34 BP 138/88 01/19/25 14:34 Pulse Ox 96 01/19/25 14:34 Oxygen Delivery Method Room Air 01/19/25 14:34 BMI result Body Mass Index 23.0 Tobacco/Smoking Status: Tobacco use Status Tobacco use date assessed 01/19/25 01/19/25 14:31 Patient Tobacco Use Status Former Tobacco user 01/19/25 14:31 e-Cigarette/Vaping Use Never Used 01/19/25 14:31 Thrive Assessment: Date of Thrive Assessment Date Thrive assessed 12/29/24 01/19/25 14:31 Coding Level of Care Code Est Pt Level 3 (86163) Diagnoses Lower back pain M54.50 Assessment & Plan Assessment & Plan (1) Lower back pain: Code(s): M54.50 - Low back pain, unspecified Category: Medical Plan . Medications: Changed From tramadol 50 mg PO DAILY 10 tabs 0RF To tramadol 50 mg PO DAILY 20 tabs 0RF 20 days Refilled triamcinolone acetonide 0.5% 1 appl topical BID 15 grams 1RF
[2025-01-19 14:34] VITALS: BP 138/88; PULSE 76; RESP 16; TEMP 36.8; O2SAT 96; BMI 23.0
--- OUTSIDE RECORDS SUMMARY | 2025-01-19 14:49 | XMS_ITS | Encounter Summary ---
Author Organization [facility] Address [address] [facility] [address] [place] [id number] Phone Care Team Providers Care Furnace Room Supervisor Name Role Phone Barbara Mobley MD Unavailable [phone] Enzo Blake NP Primary Care Provider + Encounter Details Date Type Department Care Team (Late st Contact Info) Description 04/10/2020 Ancillary Orders [facility],Outside Imaging [address] [place] [address] System, Provider Not In, [place] [address] Social History Tobacco Use Types Packs/Day Years [...] on filedocumented in this encounter Care Teams Furnace Room Supervisor Relationship Specialty Start Date End Date Enzo Blake NP [address] [place] [address] [email or web address] PCP - General Nurse Practitioner 05/25/24 Barbara Mobley MD [address] [place] [address] Orthopedics & Sports Medicine, [facility] [place] [address] [email or web address] Historical LMR Provider 04/09/17 documented as of this encounter Additional Source Comments The information contained in this document represents components of the legal health record. It is not the complete legal health record.[facility]
== END 2025-01-19 16:27 | disposition home or self-care (01) ==
PROVIDERS: PCP Nurse Practitioner Family; Visit Provider Nurse Practitioner Family
DX: M54.50 Low back pain, unspecified (principal)

== ENCOUNTER → 2025-01-19 14:09 | Outpatient (BNVA) | payer OTHER, SELFPAY | PROVIDERS: PCP Nurse Practitioner Family; Visit Provider Nurse Practitioner Family | DX: M54.50 Low back pain, unspecified (principal) | CPT/HCPCS: 99212 ==

== ENCOUNTER 2025-04-15 08:12 | Outpatient (REF) | payer OTHER, SELFPAY ==
--- NOTE | ~2025-04-15 | MM_ITS ---
EXAMINATION: MM SCREENING DIGITAL BREAST TOMOSYNTHESIS, BILATERAL CLINICAL INFORMATION: Screening. Asymptomatic. COMPARISON: Mammography: Comparison is made with available priors TECHNIQUE: Digital breast mammography with tomosynthesis is performed in both the craniocaudal and mediolateral oblique views along with computer-aided detection (CAD). FINDINGS: The breasts are heterogeneously dense, which may obscure small masses. Status post right lumpectomy. There are no significant masses, abnormal calcifications, or other abnormalities. MM/MM tomosynthesis screening BI IMPRESSION: No mammographic evidence of malignancy. ASSESSMENT: BI-RADS Category 2: Benign RECOMMENDATION: Routine annual mammography screening. 1 year F/U This examination should not preclude the clinical evaluation of a suspicious palpable abnormality. This patient's information was entered into a reminder system with a target due date for their next mammogram. Electronically signed by: Gauri Vasquez DO 04/18/2025 12:57 PM EDT
--- NOTE | ~2025-04-15 | MM_ITS ---
EXAMINATION: DXA BONE DENSITY AXIAL HISTORY: Osteopenia. TECHNIQUE: [employer] Dual energy absorptiometry (DEXA) of the lumbar spine, total left hip, and femoral neck was performed. COMPARISON: Comparison is made with the prior examination dated 04/07/2020. FINDINGS: The bone mineral density of the lumbar spine is 0.910 g/cm2, corresponding to a T-score of -2.3, and a Z-score of -1.2. This is indicative of osteopenia. This represents a BMD change of -7.7% compared to the prior exam. This is statistically significant. The bone mineral density of the left total hip is 0.966 g/cm2, corresponding to a T-score of -0.3, and a Z-score of 0.5. This is indicative of normal bone mineral density. This represents a BMD change of -5.4% compared to the prior exam. This is statistically significant. The bone mineral density of the left femoral neck is 0.948 g/cm2, corresponding to a T-score of -0.7, and a Z-score of 0.5. This is indicative of normal bone mineral density. This represents a BMD change of -1.8% compared to the prior exam. FRACTURE RISK: The FRAX index suggests a ten year probability of major osteoporotic fracture of 3.0%, and of hip fracture 0.1%. MM/XR DEXA axial skeleton IMPRESSION: Based on bone mineral density, and according to World Health Organization (WHO) criteria, the diagnosis is consistent with osteopenia. Statistically, 68% of repeat scans fall within 1 SD (+/- 0.010 g/cm2 for AP spine L1-L4) and 1 SD (+/- 0.012 g/cm2 for femur total) FRAX is a trademark of the [employer]'s [place] [facility] Metabolic Bone Disease, a World Health Organization (WHO) Collaborating Center. Electronically signed by: Vinicio Goodman MD 04/15/2025 09:26 AM EDT
== END 2025-04-15 08:13 | disposition home or self-care (01) ==
LOC: HO.MAMMO 08:12
PROVIDERS: PCP Nurse Practitioner Family; Visit Provider Nurse Practitioner Family
DX: Z12.31 Encounter for screening mammogram for malignant neoplasm of breast (principal); Z13.820 Encounter for screening for osteoporosis; M85.852 Other specified disorders of bone density and structure, left thigh
CPT/HCPCS: 77063; 77067; 77080

== ENCOUNTER → 2025-04-15 08:45 | Outpatient (BNV) | payer OTHER, SELFPAY | PROVIDERS: PCP Nurse Practitioner Family; Visit Provider Radiology Diagnostic Radiology | DX: Z12.31 Encounter for screening mammogram for malignant neoplasm of breast (principal) | CPT/HCPCS: 77063; 77067; 77080 ==

== ENCOUNTER 2025-05-11 10:06 | Outpatient (AMB) | payer OTHER, SELFPAY ==
[2025-05-11 10:12] VITALS: BP 112/76; PULSE 78; O2SAT 97; BMI 23.4
--- NOTE | 2025-05-11 10:12 | AM.OFFWIN_ITS ---
Intake Vital Signs 05/11/25 10:12 Height 5 ft 2 in Weight 128 lb BMI 23.4 BP 112/76 Blood Pressure Location Lt brachial Position Sitting Pulse 78 Pulse Source Pulse Oximeter Pulse Oximetry (%) 97 Oxygen Delivery Method Room Air Intake Visit Reasons: EP paoin swelling in anal area Intake Note: Patient presents c/o pain/swelling in rectal area. Patient has problems with constipation. Patient reports bright red blood. Patient Tobacco Use Status: Former Tobacco user Allergies ibuprofen (From MOTRIN) Adverse Reaction (Unknown, Verified 05/11/25 10:16) BRUISING Vicks Vaporub Allergy (Unknown, Uncoded 05/11/25 10:16) rash HPI EP paoin swelling in anal area HPI Details This is a 54-year-old female patient who presents to the walk-in clinic today with report of chronic constipation, and rectal bleeding yesterday following a large/firm bowel movement. She states that she has been suffering from chronic constipation nearly her entire life. She currently takes [id number]-qlp-[id number] senna b.i.d.. She admittedly does not hydrate well, nor does she have a high-fiber diet. She states that yesterday, she had a large potato-sized bowel movement, which was accompanied with bright red blood. She states that her rectal area has been very tender since then, however she has not had any further bleeding. No problems with voiding. She has used steroid rectal foam in the past which has been helpful for similar incidents. [facility] Medical History Colon cancer screening GERD (gastroesophageal reflux disease) Elevated cholesterol Hypertension Invasive lobular carcinoma of right breast, stage 1 Back pain Anxiety Nephrolithiasis Scoliosis Dyspepsia Chronic insomnia Depression Surgical History H/O oral surgery History of lumpectomy of right breast (~03/16/20) History of extraction of renal calculus Family History Mother History of diabetes mellitus History of fibromyalgia HTN (hypertension) Father Alzheimer disease Paternal Grandmother History of cancer Social History Household Members: Spouse and Children Housing: House Alcohol intake: current Alcohol intake frequency: holidays/special occasions only Patient Tobacco Use Status: Former Tobacco user Years Smoked: 15 e-Cigarette/Vaping Use: Never Used Second Hand Smoke Exposure: No service: No Current occupational status: employed 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, 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 Current occupational exposures/hazards: Yes Sexual orientation: Straight/Heterosexual Gender identity: Female Cognitive needs: No Hearing needs: No Vision needs: No Review of Systems Const All systems reviewed & are unremarkable except as noted in HPI and below Physical Exam Vital Signs: BMI result Body Mass Index 23.4 Const General: cooperative, healthy appearing, comfortable and no acute distress Resp Effort & Inspection: normal respiratory effort GI Inspection: Yes normal to inspection Palpation (GI): Soft to palpation Rectal Exam - Female: External hemorrhoid(s) present (no bleeding) and tenderness Skin General skin exam: no rashes or lesions noted Psych Appearance: grossly normal Mental Status: mental status grossly normal Speech and movement: Normal speech and movement present Assessment & Plan Assessment & Plan (1) Constipation: Code(s): K59.00 - Constipation, unspecified Qualifiers: Constipation type: unspecified constipation type Qualified Code(s): K59.00 - Constipation, unspecified Plan: chronic constipation- taking senna b.i.d.. I advised that she can increase this to t.i.d. to see if this provides any benefit. Additionally, we reviewed increase in hydration and high-fiber diet. Printed patient education from up-to-date on high-fiber diet. (2) Rectal bleeding: Code(s): K62.5 - Hemorrhage of anus and rectum Plan: External hemorrhoids noted. It is possible she also has internal hemorrhoids and/or fissuring. No current bleeding noted on exam or reported by patient. Patient states that she has an upcoming colonoscopy scheduled, possibly in May. She may benefit from a GI referral should this constipation or problematic hemorrhoids continue. I am going to prescribe her Epi foam to apply to her gely rectal area. We also discussed use of fpqj-nuo-icyvdjl which Becki pads. Advised to not strain for BMs if possible. If she develops any worsening pain or rectal bleeding she should go to the ED for evaluation. She has appt. for PE with her PCP Enzo Blake next week, at which point she can f/u on this. (3) External hemorrhoids: Code(s): K64.4 - Residual hemorrhoidal skin tags Plan: As above. Medications: New hydrocortisone-pramoxine 1-1 % (Epifoam) allow at least 3 hours between applications 1 appl topical BID PRN 10 grams 0RF hemorrhoids K64.4 - Residual hemorrhoidal skin tags Coding Level of Care Code Est Pt Level 4 (47328) Diagnoses Constipation, unspecified constipation type K59.00 Constipation type: unspecified constipation type Rectal bleeding K62.5 External hemorrhoids K64.4
--- OUTSIDE RECORDS SUMMARY | 2025-05-11 19:06 | XMS_ITS | Clinical Summary ---
Author Organization [facility] Address [address] [address] Phone Care Team Providers Care Pet Care Technician Name Role Phone Enzo Blake GLASS TUBE BENDER Primary Care Provider + Allergies Active Allergy Reactions Criticality Noted Date Comments Tkzcg-Mcwywsze-Swm-Turp-Pet Rash Low 05/25/20 24 Medications No known medications Social History Tobacco Use Types Packs/Day Years Used Date Smoking Tobacco: Never Assessed Education Answer Date Recorded Are you interested in more education? Not on sarwat e 10/18/2022 Are you concerned about learning? Not on file 10/18/2022 No 10/18/2022 No 10/18/2022 Digital Access Answer Date Recorded No 11/16/2022 No 11/16/2022 Reliable internet access at home? Not on file 11/16/2022 Device with a working camera? Not on file Intimate Partner Violence Answer Date R ecorded Are you denied basic needs s uch as food, clothing, or medical care? No 05/25/2024 In the past 12 months have y ou been in a relationship with a person who hurts, threatens, or tries to control you? No 05/25/2024 Are you denied basic needs s uch as food, clothing, or medical care? No 05/25/2024 In the past 12 months have y ou been in a relationship with a person who hurts, threatens, or tries to control you? No 05/25/2024 Comments Unknown Sex and Gender Information Value Date Recorded Sex Assigned at Not on file Legal Sex Female 9:36 PM EDT Gender Identity Not on file Sexual Orientation Not on file Last Filed Vital Signs Vital Sign Reading Time Taken Comments Blood Pressure 165/90 05/25/2024 10:08 PM EST Pulse 75 05/25/2024 10:08 PM EST Temperature 36.1 C (97 F) 05/25/2024 10:08 PM EST Respiratory Rate 16 05/25/2024 10:08 PM EST Oxygen Saturation 99% 05/25/2024 10:08 PM EST Inhaled Oxygen Concentration - - Weight 64 kg (141 lb) 05/25/2024 6:50 PM EST Height 157.5 cm (5' 2 ) 05/25/2024 6:50 PM EST Body Mass Index 25.79 05/25/2024 6:50 PM EST Plan of Treatment Health Maintenance Due Date Last Done Comments LIPID PANEL 1969 DEPRESSION SCREENING 1981 SMOKING Hx and SMOKELESS TOBACCO SCREENING 1982 HEPATITIS C SCREENING 1987 HIV ONE-TIME SCREENING (18-6 5 YEARS) 1987 PAP SMEAR 1990 SCREENING FOR DIABETES 2004 COLOGUARD 2014 COLONOSCOPY 2014 COLORECTAL CANCER SCREENING 2014 FIT TEST 2014 FOBT 2014 SIGMOIDOSCOPY 2014 VIRTUAL COLONOSCOPY 2014 PNEUMOCOCCAL VACCINES (50+ years) (1 of 1 - PCV) 2019 ZOSTER VACCINES (1 of 2) 2019 MAMMOGRAM 03/16/2022 03/16/2020, 03/01/2020, 02/25/2020 Adult Td,Tdap Booster 06/23/2022 06/23/2012 INFLUENZA VACCINE (#1) 2025 COVID-19 VACCINE (2 - 2024-2 6 season) 2025 09/27/2020 RSV VACCINE (1 - 1-dose 75+ series) 2044 HEPATITIS A VACCINES Aged Out No long er eligible based on patient's age to complete this topic HIB VACCINES Aged Out No longer eligi ble based on patient's age to complete this topic MENINGOCOCCAL VACCINES (ACWY) Aged Out No longer eligible based on patient's age to complete this topic MENINGOCOCCAL VACCINES (B) Aged Out N o longer eligible based on patient's age to complete this topic Medical Devices Not on file Procedures Procedure Name Priority Date/Time Associated Diagnosis Comments BI MAMMOGRAM OUTSIDE (NO INTERPRETATION) Routine 03/16/2020 12:00 AM EDT from Last 3 Months or Most Recently Relevant to Health Maintenance Results * Mammogram Outside (No Interpretation) (03/16/2020 12:00 AM EDT) Narrative SYSTEMGENERATED, DOCUMENTATION - 04/10/2020 3:08 PM EDT This study is for PACS storage only and not for interpretation. us Provider Not In System PhD IMG OUTSIDE IMAGING W /OUT INTERPRETATION Final Result from Last 3 Months or Most Recently Relevant to Health Maintenance Insurance [facility] Address: [address] [address] [facility] Address: [address] [address] [facility] Address: [address] [address] [facility] Address: [address] [address] [facility] Address: [address] [address] Care Teams Pet Care Technician Relationship Specialty Start Date End Date Enzo Blake NP [address] [facility] [place] [id number] PCP - General Nurse Practitioner 05/25/24 Additional Source Comments The information contained in this document represents components of the legal health record. It is not the complete legal health record.[facility]
--- OUTSIDE RECORDS SUMMARY | 2025-05-11 19:06 | XMS_ITS ---
Author Name [facility] Organization Unknown History of Medication Use Medication Directions Dispensed Refills Start Date End Date Stat betamethasone dipropionate 0.05 % topical cream APPLY TOPICALLY DAILY NEEDED FOR SKIN IRRITATION FOR 14 DAYS active cholecalciferol (vitamin D3) 50 mcg (2,000 unit) tablet TAKE 1 TABLET BY MOUTH DAILY active citalopram 20 mg tablet TAKE 1 TABLET BY MOUTH DAILY active cyclobenzaprine 5 mg tablet TAKE 1 TABLET BY MOUTH EVERY 8 HOURS FOR 3 DAYS active lidocaine 5 % topical patch APPLY 1 PATCH TOPICALLY DAILY LEAVE ON MOST PAINFUL AREA FOR UP TO 12 HOURS active losartan 50 mg tablet TAKE 1 TABLET BY MOUTH DAILY active meloxicam 15 mg tablet TAKE 1 TABLET BY MOUTH NEEDED FOR PAIN active prednisone 50 mg tablet TAKE 1 TABLET BY MOUTH DAILY FOR 5 DAYS active tamoxifen 20 mg tablet TAKE 1 TABLET BY MOUTH DAILY active tramadol 50 mg tablet TAKE 1 TABLET BY MOUTH DAILY FOR 20 DAYS active triamcinolone acetonide 0.5 % topical cream APPLY TOPICALLY TO THE AFFECTED AREA TWICE DAILY active Problems Problem Status Onset Date Problem Type Date of Resoluti on Source Lumbar radiculopathy active 2025-04-08 ProblemAct ENS_AONECT Encounters Encounter Type Encounter Reason Primary Diagnosis Location Date Ambulatory [facility] 05/11/2025 Ambulatory [facility] 04/11/2025 Ambulatory [facility] 04/08/2025 Ambulatory [facility] [place] 04/08/2025 Ambulatory [facility] [place] 04/08/2025 Ambulatory [facility] [place] 04/08/2025 Ambulatory [facility] [place] 03/23/2025 Ambulatory [facility] [place] 03/23/2025
--- OUTSIDE RECORDS SUMMARY | 2025-05-11 19:06 | XMS_ITS | Encounter Summary ---
Author Organization [facility] Address [address] [facility] [address] [place] [address] Phone Care Team Providers Care Cleaner Greaser Name Role Phone Barbara Mobley MD Unavailable [phone] Enzo Blake NP Primary Care Provider + Encounter Details Date Type Department Care Team (Late st Contact Info) Description 04/10/2020 Ancillary Orders [facility],Outside Imaging [address] [place] [address] System, Provider Not In, [place] [address] Social History Tobacco Use Types Packs/Day Years [...] on filedocumented in this encounter Care Teams Cleaner Greaser Relationship Specialty Start Date End Date Enzo Blake NP [facility] [place] [address] PCP - General Nurse Practitioner 05/25/24 Barbara Mobley MD [address] [place] [address] Orthopedics & Sports Medicine, [facility] [place] [address] [email or web address] Historical LMR Provider 04/09/17 documented as of this encounter Additional Source Comments The information contained in this document represents components of the legal health record. It is not the complete legal health record.[facility]
== END 2025-05-11 11:04 | disposition home or self-care (01) ==
PROVIDERS: PCP Nurse Practitioner Family; Visit Provider Nurse Practitioner Family
DX: K59.00 Constipation, unspecified (principal); K62.5 Hemorrhage of anus and rectum; K64.4 Residual hemorrhoidal skin tags

== ENCOUNTER → 2025-05-11 10:06 | Outpatient (BNVA) | payer OTHER, SELFPAY | PROVIDERS: PCP Nurse Practitioner Family; Visit Provider Nurse Practitioner Family | DX: K59.00 Constipation, unspecified (principal); K62.5 Hemorrhage of anus and rectum; K64.4 Residual hemorrhoidal skin tags | CPT/HCPCS: 99212 ==

== ENCOUNTER 2025-05-17 08:25 | Outpatient (AMB) | payer OTHER, SELFPAY ==
[2025-05-17 08:34] VITALS: BP 124/84; PULSE 73; RESP 16; O2SAT 97
--- NOTE | 2025-05-17 08:34 | A.OFFPC_ITS ---
Vital Signs 05/17/25 08:34 Weight 123 lb BP 124/84 Blood Pressure Location Lt brachial Position Sitting Respiration 16 Pulse 73 Pulse Source Pulse Oximeter Pulse Oximetry (%) 97 Oxygen Delivery Method Room Air Intake Visit Reasons: Annual visit Toddler Caregiver Required: No Accompanied by: Self / Same As Patient Allergies ibuprofen (From MOTRIN) Adverse Reaction (Unknown, Verified 05/17/25 08:52) BRUISING Vicks Vaporub Allergy (Unknown, Uncoded 05/11/25 10:16) rash Tobacco use date assessed: 01/19/25 Dental Screening Dental Screen Date: 01/19/25 HPI Annual visit HPI Details History of Present Illness The patient is a 54 year old individual presenting for a physical exam. The patient reports feeling well overall. The patient has a history of constipation, which is well-managed with stool softeners and Senna. There is a family history of constipation. For health maintenance, the patient's mammogram is up-to-date. The patient is due for a colon screening this month and has a SAFETY ASSOCIATE provider. Health Maintenance - The patient's mammogram is up-to-date. - The patient is due for a colon screeni ng this month, and a referral will be placed. - The patient has a SAFETY ASSOCIATE provider. Social History Review of Systems - All other systems reviewed and are neg ative - Constitutional: Reports feeling well o verall. - Cardiovascular: Denies chest pain. - Respiratory: Denies shortness of breat h. - Gastrointestinal: Reports constipation , which is improving with stool softeners and senna. Denies abdominal pain and melena. - Psychiatric: Denies suicidal ideation. Physical Exam General: Cooperative, healthy appearing, comfortable, no acute distress and well developed Orientation: Patient oriented x3 Limitations: No limitations Head: Normal to inspection Ears: Hearing grossly normal bilaterally Nose: Normal external nose present Face and sinus: Normal facial exam Eyes: Appearance normal, both eyes and all related structures Neck: Normal visual inspection and Yes full ROM Respiratory: Normal respiratory effort and able to speak in complete sentences. Clear to auscultation bilaterally Cardiovascular: Regular rate and rhythm. Normal S1 and S2 GI: Normal to inspection. Soft to palpation and nontender Skin: No rashes or lesions noted Neuro: Patient oriented x3 Extremities: Normal to inspection Results - Mammogram: Up-to-date. Plan 1. Annual Physical Examination The patient presented for a physical exam and reports feeling well overall. The exam was benign. The patient will have fasting labs drawn in the near future. 2. Constipation The patient reports doing well with the use of stool softeners and Senna for constipation. Continue current management as it is effective. 3. Screening For Malignant Neoplasm Of Randy aguilar The patient is due for a colon cancer screening this month. A referral will be placed for this screening. Discussion Notes I informed the patient that the physical exam was benign. We discussed that the patient is due for a colon screening this month, and I will place a referral. I advised that the patient should get fasting labs drawn in the near future. We reviewed that the patient's constipation is well-controlled on the current regimen of stool softeners and Senna. Patient Instructions - You will receive a referral for a colo n cancer screening, as you are due for this. - Please go for fasting lab work in the near future. - Continue taking stool softeners and Se nna as needed for your constipation. - Continue to see your SAFETY ASSOCIATE provider for routine care. [facility] Medical History Colon cancer screening GERD (gastroesophageal reflux disease) Elevated cholesterol Hypertension Invasive lobular carcinoma of right breast, stage 1 Back pain Anxiety Nephrolithiasis Scoliosis Dyspepsia Chronic insomnia Depression Surgical History H/O oral surgery History of lumpectomy of right breast (~03/16/20) History of extraction of renal calculus Family History Mother History of diabetes mellitus History of fibromyalgia HTN (hypertension) Father Alzheimer disease Paternal Grandmother History of cancer Social History Household Members: Spouse and Children Housing: House Alcohol intake: current Alcohol intake frequency: holidays/special occasions only Patient Tobacco Use Status: Former Tobacco user Years Smoked: 15 e-Cigarette/Vaping Use: Never Used Second Hand Smoke Exposure: No service: No Current occupational status: employed 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 1. Little interest or pleasure in doing things: not at all 2. Feeling down, depressed, or hopeless: not at all 3. Trouble falling or staying asleep, or sleeping too much: not at all 4. Feeling tired or having little energy: not at all 5. Poor appetite or overeating: not at all 6. Feeling bad about yourself - or that you are a failure or have let yourself or your family down: not at all 7. Trouble concentrating on things, such as reading the newspaper or watching television: not at all 8. Moving or speaking so slowly that other people could have noticed. Or the opposite - being so fidgety or restless that you have been moving around a lot more than usual: not at all 9. Thoughts that you would be better off or of hurting yourself in some way: not at all Total score: 0 Depression Screening Interpretation: Negative Depression Screening Done: Yes 32169 - PHQ-9 Billing: Yes Source: Developed by Drs. Vinicio Lovell, Alisson Burnham, Harmeet Finn and colleagues, with an educational april from [employer]. Thrive Questionnaire Date Thrive assessed: 12/29/24 MARKUS-7 AMB Questionnaire MARKUS-7 Date MARKUS - 7 assessed: 12/29/24 Source: Developed by Drs. Vinicio Lovell, Harmeet Schafer and colleagues, with an educational april from [employer]. Physical exam (Primary Care) Vital Signs: Last Vital Signs Pulse 73 05/17/25 08:34 Resp 16 05/17/25 08:34 BP 124/84 05/17/25 08:34 Pulse Ox 97 05/17/25 08:34 Tobacco/Smoking Status: Tobacco use Status Tobacco use date assessed 01/19/25 05/11/25 11:56 Patient Tobacco Use Status Former Tobacco user 05/11/25 11:56 e-Cigarette/Vaping Use Never Used 05/11/25 11:56 Depression Screening Interpretation: Negative Thrive Assessment: Date of Thrive Assessment Date Thrive assessed 12/29/24 05/11/25 11:56 Coding Level of Care Code Est Pt Prev Care 40-64y(76889) Diagnoses Colon cancer screening Z12.11 Physical exam Z00.00 Vitamin D deficiency E55.9 Additional Codes PHQ-9 - 92942 - PHQ-9 Billing: Yes ([id number]) Assessment & Plan Assessment & Plan (1) Colon cancer screening: Code(s): Z12.11 - Encounter for screening for malignant neoplasm of colon Category: Medical (2) Physical exam: Code(s): Z00.00 - Encounter for general adult medical examination without abnormal findings Category: Medical (3) Vitamin D deficiency: Code(s): E55.9 - Vitamin D deficiency, unspecified Category: Medical Plan . Orders: Orders Complete Blood Count Auto Diff Today Z00.00 - Encounter for general adult medical examination without abnormal findings Comprehensive [place]. Panel Fast Today Z00.00 - Encounter for general adult medical examination without abnormal findings TSH reflex Free T4 Today Z00.00 - Encounter for general adult medical examination without abnormal findings Lipid Panel Today Z00.00 - Encounter for general adult medical examination without abnormal findings UA CC w/rflx Micro + Cult Today Z00.00 - Encounter for general adult medical examination without abnormal findings Vitamin D 25-OH Total Today E55.9 - Vitamin D deficiency, unspecified Referrals Gastroenterology Referral Z12.11 - Encounter for screening for malignant neoplasm of colon
--- OUTSIDE RECORDS SUMMARY | 2025-05-17 08:42 | XMS_ITS | Clinical Summary ---
Author Organization [facility] Address [address] [address] Phone Care Team Providers Care Latin American Studies Director Name Role Phone Enzo Blake CRYSTAL MOUNTER Primary Care Provider + Allergies Active Allergy Reactions Criticality Noted Date Comments Lvfin-Gmcyhfcp-Mxt-Turp-Pet Rash Low 05/25/20 24 Medications No known [...] Most Recently Relevant to Health Maintenance Insurance Care Teams Latin American Studies Director Relationship Specialty Start Date End Date Enzo Blake NP [address] [facility] [place] [address] PCP - General Nurse Practitioner 05/25/24 Additional Source Comments The information contained in this document represents components of the legal health record. It is not the complete legal health record.[facility]
--- OUTSIDE RECORDS SUMMARY | 2025-05-17 08:42 | XMS_ITS | Encounter Summary ---
Author Organization [facility] Address [address] [facility] [address] [place] [id number] Phone Care Team Providers Care Industrial Sales Representative Name Role Phone Barbara Mobley MD Unavailable [phone] Enzo Blake NP Primary Care Provider + Encounter Details Date Type Department Care Team (Late st Contact Info) Description 04/10/2020 Ancillary Orders [facility],Outside Imaging [address] [place] [address] System, Provider Not In, [place] [address] Social History Tobacco Use Types Packs/Day Years [...] on filedocumented in this encounter Care Teams Industrial Sales Representative Relationship Specialty Start Date End Date Enzo Blake NP [facility] [place] [address] PCP - General Nurse Practitioner 05/25/24 Barbara Mobley MD [address] [place] [address] Orthopedics & Sports Medicine, [facility] [place] [address] [email or web address] Historical LMR Provider 04/09/17 documented as of this encounter Additional Source Comments The information contained in this document represents components of the legal health record. It is not the complete legal health record.[facility]
== END 2025-05-17 09:01 | disposition home or self-care (01) ==
LOC: HO.HMCC 08:26
PROVIDERS: PCP Nurse Practitioner Family; Visit Provider Nurse Practitioner Family
DX: Z00.00 Encounter for general adult medical examination without abnormal findings (principal); Z12.11 Encounter for screening for malignant neoplasm of colon; E55.9 Vitamin D deficiency, unspecified

== ENCOUNTER → 2025-05-17 08:25 | Outpatient (BNVA) | payer OTHER, SELFPAY | PROVIDERS: PCP Nurse Practitioner Family; Visit Provider Nurse Practitioner Family | DX: Z13.31 Encounter for screening for depression (principal) | CPT/HCPCS: 96127 ==

== ENCOUNTER 2025-05-26 10:36 | Outpatient (AMB) | payer OTHER, SELFPAY ==
--- NOTE | 2025-05-26 10:44 | MHC.OFFVIS ---
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 Patient [place] [facility] [place]. At today's visit she states that for the past two years she is having left sided back pain that radiates into the hip. Patient noted that over the summer her left sided back pain started to flair up and now her daily activities are being interrupted. She added that her lower back pain feels tight and sore to the touch. She states that she does at home exercises but no relief. Pain Scale- 7 Allergies ibuprofen (From MOTRIN) Adverse Reaction (Unknown, Verified 05/17/25 08:52) BRUISING Vicks Vaporub Allergy (Unknown, Uncoded 05/11/25 10:16) rash Medication List - Last Reconciled 05/26/25 by Charley Morales MD atorvastatin 20 mg PO DAILY cholecalciferol (vitamin D3) 50 mcg PO DAILY citalopram 20 mg PO DAILY cyclobenzaprine 10 mg PO DAILY PRN hydrocortisone-pramoxine 1-1 % (Epifoam) 1 appl topical BID PRN Lactobacillus rhamnosus GG (Culturelle) 1 cap PO DAILY lidocaine 5% (Lidoderm) 1 patch topical DAILY losartan 50 mg PO DAILY omeprazole 40 mg PO DAILY PRN tamoxifen 20 mg PO DAILY tramadol 50 mg PO DAILY 20 days triamcinolone acetonide 0.5% 1 appl topical BID HPI Comments Details: Chronic left sided back pain. Points to left lumbar paraspinals area, going down to SI area. Only once a week would radiate to leg, rare times that it feels numb on the leg. No PT yet but exercises. Known scoliosis. Previously on tramadol. Lumbar xray shows facet arthritis. She did have injection for [place] in [place] 18 years ago. History of breast CA s/p lumpectomy, radiation, on tamoxifen. History of osteopenia. [facility] Medical History Colon cancer screening GERD (gastroesophageal reflux disease) Elevated cholesterol Hypertension Invasive lobular carcinoma of right breast, stage 1 Back pain Anxiety Nephrolithiasis Scoliosis Dyspepsia Chronic insomnia Depression Surgical History H/O oral surgery History of lumpectomy of right breast (~03/16/20) History of extraction of renal calculus Family History Mother History of diabetes mellitus History of fibromyalgia HTN (hypertension) Father Alzheimer disease Paternal Grandmother History of cancer Social History Household Members: Spouse and Children Housing: House Alcohol intake: current Alcohol intake frequency: holidays/special occasions only Patient Tobacco Use Status: Former Tobacco user Years Smoked: 15 e-Cigarette/Vaping Use: Never Used Second Hand Smoke Exposure: No service: No Current occupational status: employed 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 Patient was appropriately conversant and oriented. Good historian. MSK: No specific abnormalities found on inspection of the spine and all extremities. Tender left lumbar paraspinals and facets. Nontender and SI. Nontender on GT. Lumbar ROM was full. Bilateral hip, knee and ankle ROM WNL. No ligamentous laxity or crepitance. No increased effusion. Straight-leg raising test negative. FABERE test mildly positive left. Strength is 5/5 in all muscle groups tested. No increased tone noted. Neurological: Neurologic examination of the upper and lower extremities was nonfocal with intact sensation, muscle stretch reflexes and without focal motor deficits . Gordon?s negative bilaterally. Babinski was down going bilaterally. Clonus was negative. Gait is non-antalgic without loss of balance. Results Reviewed Results Reviewed: Ordering Physician: Enzo Blake Date of Service: 12/29/24 Procedure(s): XR lumbar spine 2-3V Accession Number(s): [id number] cc: Enzo Blake~ EXAMINATION: XR LUMBOSACRAL SPINE CLINICAL INFORMATION: M54.9 - Dorsalgia, unspecified COMPARISON: None available. TECHNIQUE: AP and lateral views FINDINGS: Levoconvex curvature of the lumbar spine. Multilevel endplate sclerosis. Small marginal osteophyte formation from L3-4 to L5-S1. No acute cortical disruption or gross malalignment. Facet joint hypertrophy at L4-5 and L5-S1. Spina bifida occulta, S1, congenital. Vascular calcification, aorta. XR/XR lumbar spine 2-3V IMPRESSION: Multilevel spondylosis and levoconvex scoliosis. No acute fracture or listhesis. Atherosclerosis disease. Electronically signed by: Nagi Loja MD 12/29/2024 11:24 AM EDT RP Ordering Physician: Noelle Aldana MD Results: Date of Service: 04/15/25 Follow Up: Procedure(s): XR DEXA axial skeleton Accession Number(s): [id number] cc: Enzo Blake [facility]-; Noelle Aldana MD~ Reason For Exam: Osteopenia. EXAMINATION: DXA BONE DENSITY AXIAL HISTORY: Osteopenia. TECHNIQUE: Tripleseat Dual energy absorptiometry (DEXA) of the lumbar spine, total left hip, and femoral neck was performed. COMPARISON: Comparison is made with the prior examination dated 04/07/2020. FINDINGS: The bone mineral density of the lumbar spine is 0.910 g/cm2, corresponding to a T-score of -2.3, and a Z-score of -1.2. This is indicative of osteopenia. This represents a BMD change of -7.7% compared to the prior exam. This is statistically significant. The bone mineral density of the left total hip is 0.966 g/cm2, corresponding to a T-score of -0.3, and a Z-score of 0.5. This is indicative of normal bone mineral density. This represents a BMD change of -5.4% compared to the prior exam. This is statistically significant. The bone mineral density of the left femoral neck is 0.948 g/cm2, corresponding to a T-score of -0.7, and a Z-score of 0.5. This is indicative of normal bone mineral density. This represents a BMD change of -1.8% compared to the prior exam. FRACTURE RISK: The FRAX index suggests a ten year probability of major osteoporotic fracture of 3.0%, and of hip fracture 0.1%. MM/XR DEXA axial skeleton IMPRESSION: Based on bone mineral density, and according to World Health Organization (WHO) criteria, the diagnosis is consistent with osteopenia. Statistically, 68% of repeat scans fall within 1 SD (+/- 0.010 g/cm2 for AP spine L1-L4) and 1 SD (+/- 0.012 g/cm2 for femur total) FRAX is a trademark of the [employer]'s [place] for Metabolic Bone Disease, a World Health Organization (WHO) Collaborating Center. Electronically signed by: Vinicio Goodman MD 04/15/2025 09:26 AM EDT RP Reviewed notes from oncology 2020: History of right breast invasive lobular carcinoma, diagnosed on biopsy 2019, status post lumpectomy and sentinel lymph node biopsy, tamoxifen, radiation Reviewed recent notes from Dr. Zepeda general surgery. No signs of recurrence. Reviewed notes from PCP. Assessment & Plan Assessment & Plan (1) Lumbar facet arthropathy: Code(s): M47.816 - Spondylosis without myelopathy or radiculopathy, lumbar region Category: Medical Plan Lumbar paraspinals and facet pain, left-sided. No signs of lumbar radiculopathy or myelopathy. Patient eager to try physical therapy. PT order placed. Briefly discussed possible facet injections but patient would like to avoid if possible. Assessment and plan discussed with patient, and patient was agreeable. All questions were answered thoroughly. Follow up 3 months. Charley Morales MD, DONG Board Certified, [place] Board [employer] Medicine and Rehabilitation (ABPMR) Board Certified, [place] Board of Electrodiagnostic Medicine (ABEM) Orders: Orders PT Evaluation and Treatment 01/10/25 M47.816 - Spondylosis without myelopathy or radiculopathy, lumbar region, M54.9 - Dorsalgia, unspecified Coding Level of Care Code New Pt Level 4 (46347) Diagnoses Lumbar facet arthropathy M47.816
== END 2025-05-26 11:44 | disposition home or self-care (01) ==
LOC: HO.HOS 10:37
PROVIDERS: PCP Nurse Practitioner Family; Visit Provider Physical Medicine & Rehabilitation
DX: M47.816 Spondylosis without myelopathy or radiculopathy, lumbar region (principal)
CPT/HCPCS: 99203

== ENCOUNTER → 2025-05-26 10:36 | Outpatient (BNVA) | payer OTHER, SELFPAY | PROVIDERS: PCP Nurse Practitioner Family; Visit Provider Physical Medicine & Rehabilitation | DX: M47.816 Spondylosis without myelopathy or radiculopathy, lumbar region (principal); M54.9 Dorsalgia, unspecified | CPT/HCPCS: 99202 ==